=== PATIENT | female | born 1930 | race Caucasian/White ===

== ENCOUNTER 2021-02-20 06:08 | Inpatient (IN) | payer MEDICARE, BC ==
[~2021-02-20] VITALS: Ht 152.4 cm; Wt 88.0 kg
--- NOTE | 2021-02-20 06:21 | NUR ---
MILAGRO FROM HOME FOR C/O SOB X 5 HOURS. SATTING ON 80s ON R/A. 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 ARRIVED ON O2 AT 15LPM VIA NBM SATTING 97%. PT A, OX3. MOSTLY LAO SPEAKING , WAS PLACED IN BED 6 ER, ON MONITOR AND SUPPLEMENTAL O2. WILL CONT TO MONITOR ,
[2021-02-20] MEDS ORDERED: NITROGLYCERIN PACKET 1 GM PACKET ONE (06:51)
[2021-02-20] MEDS ORDERED: NITROGLYCERIN PACKET 1 GM PACKET TD ONE (07:00)
[2021-02-20 07:10] LABS: BASOPHILS % (AUTO) 0.3 % (0.0-2.0); EOSINOPHILS % (AUTO) 0.3 % (0.0-6.0); HEMATOCRIT 36 % (33-45); HEMOGLOBIN 12.2 g/dL (11.5-14.8); LYMPHOCYTES # (AUTO) 0.8 K/uL (0.8-4.8); LYMPHOCYTES % (AUTO) 5.8 % (20.0-44.0); MEAN CORPUSCULAR HGB CONC 34 g/dl (31.0-36.0); MEAN CORPUSCULAR VOLUME 88 fL (82-100); MONOCYTES # (AUTO) 0.8 K/uL (0.1-1.30); MONOCYTES % (AUTO) 6.3 % (2.0-12.0); NEUTROPHILS # (AUTO) 11.5 K/uL (1.8-8.9); NEUTROPHILS % (AUTO) 87.3 % (43.0-81.0); PLATELET COUNT (AUTO) 303 K/uL (150-450); RED BLOOD CELL COUNT(AUTO) 4.12 MIL/uL (4.0-5.2); WHITE BLOOD COUNT (AUTO) 13.2 K/uL (4.3-11.0)
--- NOTE | 2021-02-20 07:13 | NUR ---
URINE COLLECTED AND SENT TO LAB
[2021-02-20 07:37] LABS: CALCIUM, SERUM 8.8 mg/dL (8.5-10.1); CARBON DIOXIDE 23 mmol/L (21-32); CHLORIDE 99 mmol/L (98-107); CREATININE 1.2 mg/dL (0.6-1.3); GLUCOSE 186 mg/dL (74-106); SODIUM SERUM 135 mmol/L (136-145); UREA NITROGEN, BLOOD 29 mg/dL (7-18)
[2021-02-20 07:50] LABS: ALANINE AMINOTRANSFERASE 20 U/L (12-78); ALBUMIN 3.8 g/dL (3.4-5.0); ALKALINE PHOSPHATASE 58 U/L (46-116); ASPARTATE AMINOTRANSFERASE 20 U/L (15-37); BILIRUBIN,DIRECT 0.2 mg/dL (0.0-0.2); BILIRUBIN,TOTAL 0.7 mg/dL (0.2-1.0); TOTAL PROTEIN, SERUM 7.6 g/dL (6.4-8.2)
--- NOTE | 2021-02-20 07:58 | NUR ---
LACTIC ACID 2.1
--- NOTE | 2021-02-20 08:29 | NUR ---
DAUGHTER IN LAW KEELEY WILL ARRIVE TO ER IN 30 MINS. [phone]
--- NOTE | 2021-02-20 08:29 | NUR ---
[facility] PAGED. AWAITING DR PACHECO CALL BACK.
--- NOTE | 2021-02-20 08:37 | NUR ---
COVID POSITIVE PER LAB
[2021-02-20] MEDS ORDERED: DEXAMETHASONE SOD PHOSPHATE 10 MG/ML VIAL IV ONE (09:00)
[2021-02-20] MEDS ORDERED: DEXAMETHASONE SOD PHOSPHATE 10 MG/ML VIAL ONE (09:08)
[2021-02-20 09:17] LABS: BILIRUBIN,URINE NEGATIVE (NEGATIVE); COLOR,URINE YELLOW (YELLOW); LEUKOCYTE ESTERASE ,URINE NEGATIVE (NEGATIVE); NITRITE, URINE NEGATIVE (NEGATIVE); PH,URINE 5.5 (5.0-8.0); PROTEIN,URINE TRACE mg/dl (NEGATIVE); UGLUCOSE NEGATIVE (NEGATIVE); UROBILINOGEN,URINE 0.2 EU/dL (0.2)
--- NOTE | 2021-02-20 09:18 | NUR ---
PT SITTING IN BED COMFORTABLY, AAOX2, BREATHING EVEN AND UNLABORED, WILL CONTINUE TO MONITOR
--- NOTE | 2021-02-20 10:02 | NUR ---
CALLED NURSING SUP FOR TELE BED
--- NOTE | 2021-02-20 10:42 | NUR ---
DAUGHTER IN LAW IN WAITING ROOM
[2021-02-20] MEDS ORDERED: GUAIFENESIN/D-METHORPHAN HB 5 ML UDC PO PRN (11:00)
[2021-02-20] MEDS ORDERED: HYDROCODONE/APAP 5/325MG TABLET PO PRN (11:00)
[2021-02-20] MEDS ORDERED: MAG HYDROX/AL HYDROX/SIMETH 30 ML UDC PO PRN (11:00)
[2021-02-20] MEDS ORDERED: MAGNESIUM HYDROXIDE 30 ML UDC PO PRN (11:00)
[2021-02-20] MEDS ORDERED: Z GUARD REMEDY 4 OZ OINT TP PRN (11:00)
[2021-02-20] MEDS ORDERED: ALBUTEROL SULFATE INH 18 GM HFA.AER.AD IH PRN (11:00)
[2021-02-20] MEDS ORDERED: ONDANSETRON HCL/PF 4 MG/2 ML VIAL IVP PRN (11:00)
--- NOTE | 2021-02-20 11:02 | NUR ---
KIRSTEN FILM COMPOSER. AUTH GIVEN. [id number].
--- NOTE | 2021-02-20 11:26 | NUR ---
SON'S PHONE NUMBER. [phone]
--- NOTE | 2021-02-20 12:03 | NUR ---
PT SITTING IN BED COMFORTABLY. ALERT, SPEAKING, BREATHING EVEN AND UNLABORED. ADDITIONAL BLANKET GIVEN.
[2021-02-20] MEDS ORDERED: METF-440 PO (12:39)
[2021-02-20] MEDS ORDERED: FURO40TA5 PO (12:39)
[2021-02-20] MEDS ORDERED: PREG-59 PO (12:39)
[2021-02-20] MEDS ORDERED: TOLT4CAP14 PO (12:39)
[2021-02-20] MEDS ORDERED: COLC0.6T67 PO (12:39)
[2021-02-20] MEDS ORDERED: EZET10TA15 PO (12:39)
[2021-02-20] MEDS ORDERED: MEMA28CA5 PO (12:39)
[2021-02-20] MEDS ORDERED: LINA5TAB PO (12:39)
[2021-02-20] MEDS ORDERED: AMLO-212 PO (12:39)
[2021-02-20] MEDS ORDERED: SPIR25TA6 PO (12:39)
[2021-02-20] MEDS ORDERED: CLON1PAT12 TP (12:39)
[2021-02-20] MEDS ORDERED: METO50TA16 PO (12:39)
[2021-02-20] MEDS ORDERED: ESCI5TAB PO (12:39)
[2021-02-20] MEDS ORDERED: DEXL60CA3 PO (12:39)
[2021-02-20 12:40] LABS: BACTERIA,URINE Few /HPF (None Seen); RBC,URINE 0-2 /HPF (0-2); SQUAMOUS EPITHELIAL CELL,UR Few /HPF (None Seen); URIC ACID CRYSTALS,URINE Few /HPF (None Seen); WBC,URINE 0-2 /HPF (0-3); YEAST,URINE Rare /HPF (None Seen)
--- NOTE | 2021-02-20 13:15 | NUR ---
KATHRYN TO TELE 102.1
[2021-02-20] MEDS ORDERED: MECL-159 PO (13:22)
--- NOTE | 2021-02-20 13:30 | NUR ---
KEELEY DAUGHTER DROPPED OFF HOME MEDS AND GIVEN TO MISSY RAMIREZ RECON NURSE
--- NOTE | 2021-02-20 13:37 | NUR ---
GOING TO ROOM 101 TELE.
--- NOTE | 2021-02-20 13:41 | NUR ---
REPORT GIVEN TO WILBER SHAIKH. PT AWAITING TRANSFER TO FLOOR.
--- NOTE | 2021-02-20 13:45 | NUR ---
PER SAM US PT GOING TO 103
--- NOTE | 2021-02-20 13:51 | NUR ---
[facility] SWAB COLLECTED VIA NARE AND SENT TO LAB
--- NOTE | 2021-02-20 13:55 | NUR ---
PT TRANSFERRED TO FLOOR BY EMT AND RN FOLLOWING ACLS PROTOCOL
[2021-02-20] MEDS ORDERED: ENOXAPARIN SODIUM 40 MG/0.4 ML DISP.SYRIN SQ SCH (14:00)
--- NOTE | 2021-02-20 14:15 | NUR ---
RN NOTES RECEIVED PATIENT FROM ER DEPT. ADMITTING DX COVID, PATIENT AWAKE, ALERT/ORIENTED X 3-4, ABLE TO MAKE NEEDS KNOWN. SPEAKS COSTA RICAN AND URDU. PATIENT ON O2 4 LPM VIA NC, TOLERATING WELL SATING AT 93%, BP: 146,79, HR-95, RR-20. PATIENT SHOWING SR ON TELE MONITOR. PATIENT DENIES ANY PAIN/DISCOMFORT. PHOTOS TAKEN OF WOUNDS, PRINTED OUT AND PUT IN CHART. ALL BELONGINGS WITH PATIENT AND ACCOUNTED FOR. ALL NEEDS MET. ALL APPLICABLE ISOLATIONS PRECAUTIONS IN PLACE. ALL SAFETY MEASURES IN PLACE. HOB ELEVATED. BED LOCKED AND IN LOWEST POSITION, CALL LIGHT WITHIN REACH OF PATIENT. WILL CONTINUE TO MONITOR PATIENT ACCORDINGLY. Addendum: 02/20/21 at 1437 by WILBER FLORES RN REPORT RECEIVED FROM GRANT SHAIKH.
[2021-02-20 16:00] VITALS: BP 146/79
[2021-02-20] MEDS: ENOXAPARIN SODIUM 30 MG/0.3 ML DISP.SYRIN SQ SCH (16:03)
[2021-02-20] MEDS: LEVOFLOXACIN 750 MG /D5W 150ML 750 MG in PREMIX 1 EA IV SCH (16:05)
--- NOTE | 2021-02-20 19:08 | NUR ---
RN CLOSING NOTES PATIENT REMAINS IN STABLE CONDITION THROUGH SHIFT. NO SIGNIFICANT CHANGES THROUGHOUT SHIFT. NO SOB OR ACUTE DISTRESS NOTED ON O2 4LPM VIA VC, TOLERATING WELL. IV ACCESS ON LEFT AC #18G, PATENT AND INTACT. DENIES ANY PAIN/DISCOMFORT. KEPT PATIENT CLEAN,DRY AND COMFORTABLE. ALL NEEDS ATTENDED. ALL APPLICABLE ISOLATION PRECAUTIONS MAINTAINED. ALL SAFETY MEASURES IN PLACE. HOB ELEVATED, BED LOCKED AND IN LOWE POSITION WITH SIDERAILS UP, CALL LIGHT WITHIN REACH OF PATIENT. WILL ENDORSE TO ONCOMING NURSE FOR CONTINUITY OF CARE.
--- NOTE | 2021-02-20 19:30 | NUR ---
RN NOTE PT RECEIVED IN BED. PT IS ON 4L OF O2 VIA NC SHOWING NO S/S OF RESP DISTRESS. BREATHING EVEN AND UNLABORED. PT IS ALERT AND ORIENTED X3-4, BULGARIAN SPEAKING. ON SENIOR ARCHITECT SHOWING NSR. ON CARDIAC DIET. IV ACCESS NOTED ON LEFT AC #18. LINE FLUSHED, PATENT, AND INTACT WITH NO SIGNS OF INFILTRATION. ALL SAFETY MEASURES IMPLEMENTED. CALL LIGHT WITHIN REACH. BED ALARM ON. BED LOCKED AND IN LOWEST POSITION. SIDE RAILS UP. WILL CONTINUE TO MONITOR AND ASSESS FOR ANY CHANGES DURING SHIFT.
[2021-02-20 20:00] VITALS: BP 129/80
[2021-02-21] VITALS: BP 116/71
[2021-02-21 04:00] VITALS: BP 128/79
--- NOTE | 2021-02-21 06:45 | NUR ---
RN NOTE NO CHANGES IN PT CONDITION DURING SHIFT. PT IS ON 4L OF O2 VIA NC SHOWING NO S/S OF RESP DISTRESS. BREATHING EVEN AND UNLABORED. PT IS ALERT AND ORIENTED X3-4, MACEDONIAN SPEAKING. ON OPEN SHANK COVERER SHOWING NSR. IV ACCESS NOTED ON LEFT AC #18. LINE FLUSHED, PATENT, AND INTACT WITH NO SIGNS OF INFILTRATION. ALL DUE MEDS GIVEN ORDERED. PT KEPT CLEAN AND COMFORTABLE. ALL SAFETY MEASURES IMPLEMENTED. CALL LIGHT WITHIN REACH. BED ALARM ON. BED LOCKED AND IN LOWEST POSITION. SIDE RAILS UP. WILL ENDORSE TO MORNING SHIFT RN FOR STEVEN.
[2021-02-21 07:04] LABS: BASOPHILS % (AUTO) 0.1 % (0.0-2.0); EOSINOPHILS % (AUTO) 0.1 % (0.0-6.0); HEMATOCRIT 33 % (33-45); LYMPHOCYTES % (AUTO) 11.1 % (20.0-44.0); MEAN CORPUSCULAR HGB CONC 34 g/dl (31.0-36.0); MEAN CORPUSCULAR VOLUME 89 fL (82-100); MONOCYTES # (AUTO) 0.9 K/uL (0.1-1.30); MONOCYTES % (AUTO) 10.1 % (2.0-12.0); NEUTROPHILS # (AUTO) 6.7 K/uL (1.8-8.9); NEUTROPHILS % (AUTO) 78.6 % (43.0-81.0); PLATELET COUNT (AUTO) 227 K/uL (150-450); RED BLOOD CELL COUNT(AUTO) 3.66 MIL/uL (4.0-5.2); WHITE BLOOD COUNT (AUTO) 8.6 K/uL (4.3-11.0)
[2021-02-21] MEDS: PANTOPRAZOLE 40 MG TABLET.DR PO SCH (07:41)
--- NOTE | 2021-02-21 07:47 | NUR ---
RN OPENING NOTE- PT IN BED. PT IS ON 4L OF O2 VIA NC SHOWING NO S/S OF RESP DISTRESS. BREATHING EVEN AND NONLABORED. PT IS ALERT AND ORIENTED X3-4, JAPANESE SPEAKING. ON SENIOR SALES ADMINISTRATOR SHOWING NSR. ON CARDIAC DIET. IV ACCESS NOTED ON LEFT AC #18. ASSISTED OOB TO AMBULATE TO BR. VOIDING. STEADY GAIT. ALL SAFETY MEASURES IMPLEMENTED. CALL LIGHT WITHIN REACH. BED ALARM ON. BED LOCKED AND IN LOWEST POSITION. SIDE RAILS UP. WILL CONTINUE TO MONITOR AND ASSESS FOR ANY CHANGES DURING SHIFT.
[2021-02-21 08:00] VITALS: BP 138/61
[2021-02-21] MEDS ORDERED: HYDROGEL DRESSING 90 GM TUBE TP PRN (08:00)
--- NOTE | 2021-02-21 08:02 | NUR ---
WOUND CARE CONSULT: REVIEWED CHART, NURSING DOCUMENTATION AND PHOTO WHICH INDICATES LEFT BUTTOCK STAGE 3 ULCERS, PRESENT ON ADMISSION. RECOMMENDATIONS MADE FOR SKIN PROTECTION AND WOUND CARE. DISCUSSED WITH NURSING STAFF. SURGICAL CONSULT REQUESTED FROM DR JUNIOR BASILIO MD IN AGREEMENT WITH PLAN OF CARE.
[2021-02-21 08:24] LABS: CALCIUM, SERUM 8.8 mg/dL (8.5-10.1); CREATININE 0.9 mg/dL (0.6-1.3); MAGNESIUM 1.9 mg/dL (1.8-2.4); PHOSPHORUS 3.7 mg/dL (2.5-4.9); POTASSIUM 5.5 mmol/L (3.5-5.1)
[2021-02-21] MEDS ORDERED: DEXAMETHASONE SOD PHOSPHATE 6 MG in IV D5W 50 ML IV SCH (09:00)
--- NOTE | 2021-02-21 09:01 | NUR ---
RN NOTE- DYSPEPSIA. MAALOX 30CC ADMINISTERED
[2021-02-21] MEDS: GLUCERNA SHAKE 237 ML CAN PO SCH ×2 (09:09→16:14)
[2021-02-21] MEDS: ENOXAPARIN SODIUM 30 MG/0.3 ML DISP.SYRIN SQ SCH (09:09)
[2021-02-21] MEDS: DEXAMETHASONE SOD PHOSPHATE 10 MG/ML VIAL IV SCH (09:09)
[2021-02-21] MEDS: HYDROGEL DRESSING 90 GM TUBE TP SCH (09:39)
--- NOTE | 2021-02-21 11:09 | NUR ---
RN NOTE- K 5.5 , DR ZHONG NOTIFIED. NNO
[2021-02-21] MEDS: ENOXAPARIN SODIUM 100 MG/ML DISP.SYRIN SQ SCH ×2 (11:20→21:30)
[2021-02-21 12:00] VITALS: BP 142/76
[2021-02-21] MEDS: FUROSEMIDE 40 MG/4 ML VIAL IV SCH ×2 (15:06→21:30)
--- NOTE | 2021-02-21 15:55 | NUR ---
NEEL NOTE- DINA MARRUFO PLACED BY ALFREDO QUICK AT THIS TIME . IVF RESTARTED. Addendum: 02/21/21 at 1605 by LUIS MANUEL MORALES RN WRONG PT NATAN ABOVE
[2021-02-21 16:00] VITALS: BP 133/61
--- NOTE | 2021-02-21 18:33 | NUR ---
RN CLOSING NOTE-PT AWAKE IN BED, ALERT ORIENTED, MAKES NEEDS KNOWN. PT O2 SATS AT 96% ON 4LPM VIA NC, SIDE RAILS UP, BED LOCKED, CALL LIGHT IN REACH. MONITOR/ ASSIST
--- NOTE | 2021-02-21 19:35 | NUR ---
RN NOTE PT RECEIVED IN BED. PT IS ON 4L OF O2 VIA NC SHOWING NO S/S OF RESP DISTRESS. BREATHING EVEN AND UNLABORED. PT IS ALERT AND ORIENTED X4. ON CYTOLOGY MANAGER SHOWING NSR. ON CARDIAC DIET. IV ACCESS NOTED ON LEFT AC #18. LINE FLUSHED, PATENT, AND INTACT WITH NO SIGNS OF INFILTRATION. ALL SAFETY MEASURES IMPLEMENTED. CALL LIGHT WITHIN REACH. BED ALARM ON. BED LOCKED AND IN LOWEST POSITION. SIDE RAILS UP. WILL CONTINUE TO MONITOR AND ASSESS FOR ANY CHANGES DURING SHIFT.
[2021-02-21 20:00] VITALS: BP 122/74
[2021-02-22] VITALS: BP 109/85
[2021-02-22 04:00] VITALS: BP 137/75
--- NOTE | 2021-02-22 06:54 | NUR ---
RN NOTE NO CHANGES IN PT CONDITION DURING SHIFT. PT IS ON 4L OF O2 VIA NC SHOWING NO S/S OF RESP DISTRESS. BREATHING EVEN AND UNLABORED. PT IS ALERT AND ORIENTED X4. ON SPACE SYSTEMS OPERATIONS CRAFTSMAN SHOWING NSR. IV ACCESS NOTED ON LEFT AC #18. LINE FLUSHED, PATENT, AND INTACT WITH NO SIGNS OF INFILTRATION. ALL DUE MEDS GIVEN ORDERED. PT KEPT CLEAN AND COMFORTABLE. ALL SAFETY MEASURES IMPLEMENTED. CALL LIGHT WITHIN REACH. BED ALARM ON. BED LOCKED AND IN LOWEST POSITION. SIDE RAILS UP. WILL ENDORSE TO MORNING SHIFT RN FOR STEVEN.
--- NOTE | 2021-02-22 07:30 | NUR ---
RN MORNING NOTE PT OBSERVED IN BED WITH HOB SEMI FOWLERS. PT IS ON 4L O2 VIA NC SAT 94% TOLERATING WELL WITH NO SIGNS OF DISTRESS OR LABORED BREATHING. PT IS A/OX3-4 AND ON TELE MONITOR SR. PT IS ON BR WITH DIAPER AND ON CARDIAC DIET. PT HAS L AC 18G. BED LOCKED IN LOWEST POSITION X2 BED RAILS UP ALL SAFETY MEASURES ARE IN PLACE AND WILL CONTINUE TO MONITOR THIS SHIFT.
[2021-02-22 07:36] LABS: BASOPHILS % (AUTO) 0.2 % (0.0-2.0); EOSINOPHILS % (AUTO) 0.1 % (0.0-6.0); HEMATOCRIT 35 % (33-45); HEMOGLOBIN 11.7 g/dL (11.5-14.8); LYMPHOCYTES # (AUTO) 1.4 K/uL (0.8-4.8); LYMPHOCYTES % (AUTO) 15.4 % (20.0-44.0); MEAN CORPUSCULAR HGB CONC 33 g/dl (31.0-36.0); MEAN CORPUSCULAR VOLUME 89 fL (82-100); MONOCYTES # (AUTO) 0.8 K/uL (0.1-1.30); MONOCYTES % (AUTO) 8.6 % (2.0-12.0); NEUTROPHILS % (AUTO) 75.7 % (43.0-81.0); PLATELET COUNT (AUTO) 267 K/uL (150-450); RED BLOOD CELL COUNT(AUTO) 3.96 MIL/uL (4.0-5.2); WHITE BLOOD COUNT (AUTO) 9.2 K/uL (4.3-11.0)
[2021-02-22 08:00] VITALS: BP 135/82
[2021-02-22 08:05] LABS: ALBUMIN 3.2 g/dL (3.4-5.0); BILIRUBIN,TOTAL 1.1 mg/dL (0.2-1.0); CALCIUM, SERUM 9.5 mg/dL (8.5-10.1); CREATININE 1.1 mg/dL (0.6-1.3); PHOSPHORUS 3.6 mg/dL (2.5-4.9); POTASSIUM 4.3 mmol/L (3.5-5.1)
[2021-02-22] MEDS: GLUCERNA SHAKE 237 ML CAN PO SCH ×2 (08:35→17:59)
[2021-02-22] MEDS: PANTOPRAZOLE 40 MG TABLET.DR PO SCH (08:38)
[2021-02-22] MEDS: DEXAMETHASONE SOD PHOSPHATE 10 MG/ML VIAL IV SCH (08:39)
[2021-02-22] MEDS: ENOXAPARIN SODIUM 100 MG/ML DISP.SYRIN SQ SCH ×2 (08:41→22:37)
[2021-02-22] MEDS: HYDROGEL DRESSING 90 GM TUBE TP SCH (08:42)
[2021-02-22] MEDS: CARVEDILOL 6.25 MG TABLET PO SCH ×2 (11:08→22:36)
[2021-02-22] MEDS: FUROSEMIDE 40 MG/4 ML VIAL IV SCH ×3 (11:09→18:00)
[2021-02-22 12:00] VITALS: BP_SYST 135; BP_SYST 144; BP_DIAS 68; BP_DIAS 82
--- NOTE | 2021-02-22 12:44 | NUR ---
SW received consult regarding wounds from home. SW attempted to speak with pt., but she did not understand what is being asked. Pt. seemed to not speak Sami very well. SW will make an APS report due to wounds at home.
[2021-02-22] MEDS: LEVOFLOXACIN 750 MG /D5W 150ML 750 MG in PREMIX 1 EA IV SCH (13:34)
[2021-02-22 16:00] VITALS: BP 102/82
--- NOTE | 2021-02-22 19:20 | NUR ---
RN OPENING NOTES RECEIVED PATIENT IN BED, AWAKE, ALERT AND VERBALLY RESPONSIVE, NO SOB NOTED NOT IN DISTRESS, A/O X 3-4, PT ON OXYGEN NASAL CANULA @ 4LPM, . PATIENT NOTED WITH LASHON MIDLINE G#18, PATENT INTACT AND FLUSHED WITH NORMAL SALINE. ALL SAFETY PRECAUTION IMPLEMENTED. BED IS AT LOWEST POSITION AND LOCKED. BED ALARM ARMED. CALL LIGHT IS WITHIN REACH. WILL CONTINUE TO MONITOR
[2021-02-22 20:00] VITALS: BP 142/102
--- NOTE | 2021-02-22 20:14 | NUR ---
RN CLOSING NOTE PT IS IN BED WITH HOB SEMI FOWLERS. PT IS ON 4L O2 VIA NC SAT 95% TOLERATING WELL WITH NO SIGNS OF DISTRESS OR LABORED BREATHING. PT IS A/OX3-4 AND ON TELE MONITOR SR. PT IS ON BR WITH DIAPER AND ON CARDIAC DIET. PT NOW HAS L UA MIDLINE 18G PATENT AND FLUSHING WELL. BED LOCKED IN LOWEST POSITION X2 BED RAILS UP ALL SAFETY MEASURES ARE IN PLACE AND WILL ENDORSE TO EMERGENCY MANAGEMENT CONSULTANT NURSE FOR STEVEN.
[2021-02-23] VITALS: BP 115/82
[2021-02-23 04:00] VITALS: BP 121/68
--- NOTE | 2021-02-23 05:30 | NUR ---
RN NOTES PATIENT REFUSED FOR BLOOD DRAW, WILL TRY AGAIN LATER. ENDORSED TO NEXT SHIFT.
--- NOTE | 2021-02-23 06:43 | NUR ---
RN CLOSING NOTES PATIENT REMAIN STABLE THROUGH OUT THE SHIFT, NO SOB NOTED NOT IN DISTRESS, A/O X 3-4, PT ON OXYGEN NASAL CANULA @ 4LPM, . PATIENT NOTED WITH LASHON MIDLINE G#18, PATENT INTACT AND FLUSHED WITH NORMAL SALINE. ALL DUE MEDS GIVEN ORDERED. ALL SAFETY PRECAUTION IMPLEMENTED. BED IS AT LOWEST POSITION AND LOCKED. BED ALARM ARMED. CALL LIGHT IS WITHIN REACH. WILL CONTINUE TO MONITOR
--- NOTE | 2021-02-23 07:40 | NUR ---
RN OPENING NOTES RECEIVED PATIENT IN BED, AWAKE, ALERT/ORIENTED X 3-4. BREATHING EVEN AND UNLABORED. NO SOB OR ANY ACUTE DISTRESS NOTED, PT ON OXYGEN VIA NC @ 4LPM, TOLERATING WELL. PATIENT NOTED WITH LASHON MIDLINE G#18, PATENT INTACT AND FLUSHED. ALL APPLICABLE ISOLATIONS PRECAUTIONS IN PLACED. ALL SAFETY PRECAUTION IMPLEMENTED. BED IS AT LOWEST POSITION AND LOCKED. BED ALARM ARMED. CALL LIGHT IS WITHIN REACH OF PATIENT. WILL CONTINUE TO MONITOR PATIENT ACCORDINGLY.
[2021-02-23 08:00] VITALS: BP 133/82
[2021-02-23] MEDS: CARVEDILOL 6.25 MG TABLET PO SCH ×2 (08:05→21:00)
[2021-02-23] MEDS: PANTOPRAZOLE 40 MG TABLET.DR PO SCH (08:06)
[2021-02-23] MEDS: DEXAMETHASONE SOD PHOSPHATE 10 MG/ML VIAL IV SCH (08:06)
[2021-02-23] MEDS: ENOXAPARIN SODIUM 100 MG/ML DISP.SYRIN SQ SCH ×2 (08:07→21:17)
[2021-02-23 09:10] LABS: BASOPHILS % (AUTO) 0.3 % (0.0-2.0); EOSINOPHILS % (AUTO) 0.1 % (0.0-6.0); HEMATOCRIT 37 % (33-45); HEMOGLOBIN 12.4 g/dL (11.5-14.8); LYMPHOCYTES # (AUTO) 1.6 K/uL (0.8-4.8); LYMPHOCYTES % (AUTO) 15.3 % (20.0-44.0); MEAN CORPUSCULAR HGB CONC 34 g/dl (31.0-36.0); MEAN CORPUSCULAR VOLUME 88 fL (82-100); MONOCYTES # (AUTO) 0.6 K/uL (0.1-1.30); MONOCYTES % (AUTO) 5.7 % (2.0-12.0); NEUTROPHILS # (AUTO) 8.3 K/uL (1.8-8.9); NEUTROPHILS % (AUTO) 78.6 % (43.0-81.0); PLATELET COUNT (AUTO) 306 K/uL (150-450); RED BLOOD CELL COUNT(AUTO) 4.15 MIL/uL (4.0-5.2); WHITE BLOOD COUNT (AUTO) 10.5 K/uL (4.3-11.0)
[2021-02-23 09:39] LABS: ALANINE AMINOTRANSFERASE 19 U/L (12-78); ALBUMIN 3.3 g/dL (3.4-5.0); ALKALINE PHOSPHATASE 43 U/L (46-116); ASPARTATE AMINOTRANSFERASE 24 U/L (15-37); CARBON DIOXIDE 25 mmol/L (21-32); CHLORIDE 98 mmol/L (98-107); CREATININE 1.4 mg/dL (0.6-1.3); GLUCOSE 168 mg/dL (74-106); MAGNESIUM 1.8 mg/dL (1.8-2.4); PHOSPHORUS 4.1 mg/dL (2.5-4.9); SODIUM SERUM 137 mmol/L (136-145); TOTAL PROTEIN, SERUM 7.2 g/dL (6.4-8.2); UREA NITROGEN, BLOOD 40 mg/dL (7-18)
[2021-02-23] MEDS: HYDROGEL DRESSING 90 GM TUBE TP SCH (09:51)
[2021-02-23] MEDS: GLUCERNA SHAKE 237 ML CAN PO SCH ×2 (09:51→17:16)
[2021-02-23] MEDS: FUROSEMIDE 40 MG/4 ML VIAL IV SCH ×3 (10:39→17:45)
[2021-02-23 12:00] VITALS: BP 116/74
[2021-02-23] MEDS: METOPROLOL TARTRATE 50 MG TABLET PO SCH ×3 (12:25→23:54)
[2021-02-23 16:00] VITALS: BP 119/79
--- NOTE | 2021-02-23 19:30 | NUR ---
RN OPENING NOTES RECEIVED PT IN BED, AWAKE. AOx3-4, ABLE TO MAKE NEEDS KNOWN. ON 4L NC AND TOLERATING WELL/. NO SOB NOTED. NO S/SX OF RESPIRATORY DISTRESS NOTED. TELE MONITOR DETECTS SR IN 70S. IV ACCESS IN LASHON MIDLINE #18. IV IS INTACT, PATENT, AND FLUSHING WELL. SAFETY PRECAUTIONS IN PLACE: BED IN LOWEST, LOCKED POSITION, SIDERAILS UP X2, AND BRAKES ON. TABLE AND CALL LIGHT WITHIN REACH. WILL CONTINUE TO MONITOR.
[2021-02-23 20:00] VITALS: BP 96/62
--- NOTE | 2021-02-23 20:02 | NUR ---
RN CLOSING NOTES PATIENT REMAIN IN STABLE CONDITION THROUGH OUT THE SHIFT, NO SOB NOTED NOT IN DISTRESS, A/O X 3-4, PT ON OXYGEN NASAL CANULA @ 4LPM, . PATIENT NOTED WITH LASHON MIDLINE G#18, PATENT AND INTACT. KEPT PATIENT CLEAN AND DRY. ALL DUE MEDS GIVEN ORDERED. ALL NEEDS ATTENDED AND MET. ALL SAFETY PRECAUTION IMPLEMENTED. BED IS AT LOWEST POSITION AND LOCKED. BED ALARM ARMED. CALL LIGHT IS WITHIN REACH. ENDORSED TO ONCOMING NURSE FOR STEVEN.
[2021-02-24] VITALS: BP 101/74
[2021-02-24 04:00] VITALS: BP 101/74
--- NOTE | 2021-02-24 05:36 | NUR ---
PATIENT REFUSED 4 AM VITALS. WILL CONTINUE TO MONITOR.
[2021-02-24] MEDS: METOPROLOL TARTRATE 50 MG TABLET PO SCH ×3 (06:00→17:10)
--- NOTE | 2021-02-24 06:49 | NUR ---
RN CLOSING NOTES PT IN BED, ASLEEP, OPENS EYES TO VERBAL STIMULI. AOx3-4, ABLE TO MAKE NEEDS KNOWN. ON 4L NC AND TOLERATING WELL. NO SOB NOTED. NO S/SX OF RESPIRATORY DISTRESS NOTED. TELE MONITOR DETECTS SR IN 70S. IV ACCESS IN LASHON MIDLINE #18. IV IS INTACT, PATENT, AND FLUSHING WELL. ALL NEEDS MET. PT KEPT CLEAN AND DRY. SAFETY PRECAUTIONS IN PLACE: BED IN LOWEST, LOCKED POSITION, SIDERAILS UP X2, AND BRAKES ON. TABLE AND CALL LIGHT WITHIN REACH. WILL ENDORSE TO ONCOMING SHIFT FOR STEVEN.
--- NOTE | 2021-02-24 07:25 | NUR ---
RN OPENING NOTE RECEIVE REPORT FROM CHILDREN LIBRARIAN NURSE. PATIENT IN STABLE CONDITION AT TIME OF REPORT. RECEIVE OXYGEN VIA NC AT 4L/MIN. A/O X3-4. TELE MONITOR SHOWS SINUS RHYTHM. WILL FOLLOW UP AM LABS AND DOCTOR ORDERS. PROPER ISOLATION PRECAUTION IN PLACE. ALL SAFETY MEASURE IN PLACE. BED ON LOWEST POSITION WITH HOB ELEVATED AND 3 SIDE RAIL UP. CALL LIGHT WITHIN REACH. WILL CONTINUE TO MONITOR.
[2021-02-24 08:00] VITALS: BP 139/97
[2021-02-24] MEDS: GLUCERNA SHAKE 237 ML CAN PO SCH ×2 (08:02→17:04)
[2021-02-24] MEDS: PANTOPRAZOLE 40 MG TABLET.DR PO SCH (08:09)
[2021-02-24] MEDS: ENOXAPARIN SODIUM 100 MG/ML DISP.SYRIN SQ SCH ×2 (08:09→21:28)
[2021-02-24] MEDS: DEXAMETHASONE SOD PHOSPHATE 10 MG/ML VIAL IV SCH (08:10)
[2021-02-24] MEDS: CARVEDILOL 6.25 MG TABLET PO SCH ×2 (08:16→21:32)
[2021-02-24] MEDS: HYDROGEL DRESSING 90 GM TUBE TP SCH (08:23)
[2021-02-24 12:00] VITALS: BP 132/85
[2021-02-24 13:21] LABS: ALANINE AMINOTRANSFERASE 41 U/L (12-78); ALBUMIN 3.3 g/dL (3.4-5.0); ALKALINE PHOSPHATASE 46 U/L (46-116); ASPARTATE AMINOTRANSFERASE 43 U/L (15-37); BILIRUBIN,TOTAL 0.8 mg/dL (0.2-1.0); CALCIUM, SERUM 8.7 mg/dL (8.5-10.1); CARBON DIOXIDE 25 mmol/L (21-32); CHLORIDE 98 mmol/L (98-107); CREATININE 1.5 mg/dL (0.6-1.3); GLUCOSE 184 mg/dL (74-106); POTASSIUM 3.7 mmol/L (3.5-5.1); SODIUM SERUM 138 mmol/L (136-145); TOTAL PROTEIN, SERUM 7.1 g/dL (6.4-8.2); UREA NITROGEN, BLOOD 53 mg/dL (7-18)
[2021-02-24 13:46] LABS: BASOPHILS % (AUTO) 0.1 % (0.0-2.0); EOSINOPHILS % (AUTO) 0.1 % (0.0-6.0); HEMATOCRIT 37 % (33-45); HEMOGLOBIN 12.4 g/dL (11.5-14.8); LYMPHOCYTES # (AUTO) 0.7 K/uL (0.8-4.8); LYMPHOCYTES % (AUTO) 5.4 % (20.0-44.0); MEAN CORPUSCULAR HGB CONC 33 g/dl (31.0-36.0); MEAN CORPUSCULAR VOLUME 88 fL (82-100); MONOCYTES # (AUTO) 0.9 K/uL (0.1-1.30); MONOCYTES % (AUTO) 6.6 % (2.0-12.0); NEUTROPHILS # (AUTO) 11.3 K/uL (1.8-8.9); NEUTROPHILS % (AUTO) 87.8 % (43.0-81.0); PLATELET COUNT (AUTO) 313 K/uL (150-450); RED BLOOD CELL COUNT(AUTO) 4.24 MIL/uL (4.0-5.2); WHITE BLOOD COUNT (AUTO) 12.9 K/uL (4.3-11.0)
[2021-02-24 16:00] VITALS: BP 132/95
--- NOTE | 2021-02-24 18:29 | NUR ---
RN CLOSING NOTE PATIENT MAINTAIN STABLE CONDITION WITH NO SIGN OF DISTRESS THROUGH OUT SHIFT. REMAIN ON OXYGEN VIA NC AT 4L/MIN. AO X3-4. COMPLIANCE WITH CARE GIVEN. TOOK ALL MEDICATIONS. [place]O TANNER SHOW SINUS RHYTHM/ SINUS TACHYCARDIA. PATIENT AMBULATE TO BED SIDE COMMODE. PROPER ISOLATION PROTOCOL IN PLACE. ALL SAFETY MEASURE IN PLACE. BED ON LOWEST POSITION WITH HOB ELEVATED AND 3 SIDE RIAL UP. CALL LIGHT WITHIN REACH. WILL CONTINUE TO MONITOR AN ENDORSE TO LOSS CLAIM CLERK NURSE.
[2021-02-24 20:00] VITALS: BP 120/79
--- NOTE | 2021-02-24 20:00 | NUR ---
RN OPENING NOTE RECEIVED PATIENT IN BED. A/OX3, LANGUAGE BARRIER. ABLE TO MAKE BASIC NEEDS KNOWN. ON OXYGEN 4L/MIN VIA NASAL CANNULA.RESPIRATIONS ARE EVEN AND UNLABORED. NO S/S SOB NOTED. NO C/O PAIN. NO DISTRESS. TELE MONITOR READS A FLUTTER HR 95. INNO APPARENT DISTRESS. IV ACCESS IN LASHON MIDLINE PATENT AND SALINE LOCKED. BED IS LOW AND LOCKED, HOB ELEVATED IN SEMI FOWLERS, SIDE RIALS UP X3, EDUARDO LIGHT WITHIN REACH. ALARMS ON AND SAFETY MEASURES IN PLACE.
[2021-02-25] VITALS: BP 116/59
[2021-02-25] MEDS: METOPROLOL TARTRATE 50 MG TABLET PO SCH ×4 (01:03→17:07)
[2021-02-25 04:00] VITALS: BP 127/83
--- NOTE | 2021-02-25 06:37 | NUR ---
RN CLOSING NOTE PATIENT IN BED. A/OX3. REMAINS ON OXYGEN 4L/MIN VIA NASAL CANNULA.NO RESP DISTRESS, COUGH. NO PAIN. TELE IS A FLUTTER RANGE 95-105. NO DISTRESS. LASHON MIDLINE MAINTAINED. BED REMAINS LOW AND LOCKED, HOB ELEVATED IN SEMI FOWLERS, SIDE RIALS UP X3, CALL LIGHT WITHIN REACH. ALARMS ON AND SAFETY MEASURES IN PLACE. WILL ENDORSE TO ONCOMING SHIFT.
[2021-02-25 07:10] LABS: BASOPHILS % (AUTO) 0.1 % (0.0-2.0); EOSINOPHILS % (AUTO) 0.1 % (0.0-6.0); HEMATOCRIT 37 % (33-45); HEMOGLOBIN 12.2 g/dL (11.5-14.8); LYMPHOCYTES # (AUTO) 0.9 K/uL (0.8-4.8); LYMPHOCYTES % (AUTO) 9.8 % (20.0-44.0); MEAN CORPUSCULAR HGB CONC 33 g/dl (31.0-36.0); MEAN CORPUSCULAR VOLUME 88 fL (82-100); MONOCYTES # (AUTO) 1.1 K/uL (0.1-1.30); MONOCYTES % (AUTO) 12.4 % (2.0-12.0); NEUTROPHILS # (AUTO) 7.1 K/uL (1.8-8.9); NEUTROPHILS % (AUTO) 77.6 % (43.0-81.0); PLATELET COUNT (AUTO) 292 K/uL (150-450); RED BLOOD CELL COUNT(AUTO) 4.19 MIL/uL (4.0-5.2); WHITE BLOOD COUNT (AUTO) 9.2 K/uL (4.3-11.0)
--- NOTE | 2021-02-25 07:10 | NUR ---
RN OPENING NOTE RECEIVED PATIENT IN BED, A/OX3-4. ABLE TO MAKE NEEDS KNOWN. PATIENT IS ON OXYGEN 4L/MIN VIA NASAL CANNULA WITH EVEN AND UNLABORED BREATHING. NO RESPIRATORY DISTRESS NOTED AT THIS TIME BUT NOTED SOME EFFERT WHEN SPEAKING CONTINUOUSLY. OXYGEN SATURATION WNL. NO C/O PAIN. PATIENT ON TELE MONITOR READS A FLUTTER HR 95. WITH LASHON MIDLINE IV ACCESS, PATENT AND INTACT, ON SALINE LOCK. SAFETY MEASURES ENSURED WITH BED IN LOW AND LOCKED, HOB ELEVATED IN SEMI FOWLERS, SIDE RIALS UP X3, EDUARDO LIGHT WITHIN REACH. ALARMS ON AND SAFETY MEASURES IN PLACE. Addendum: 02/25/21 at 1136 by SHIRLEY SEN RN WILL CONTINUE TO MONITOR PATIENT.
[2021-02-25 07:26] LABS: ALBUMIN 3.2 g/dL (3.4-5.0); BILIRUBIN,TOTAL 0.7 mg/dL (0.2-1.0); CALCIUM, SERUM 8.8 mg/dL (8.5-10.1); CREATININE 1.2 mg/dL (0.6-1.3); MAGNESIUM 2.1 mg/dL (1.8-2.4); PHOSPHORUS 3.8 mg/dL (2.5-4.9); POTASSIUM 4.2 mmol/L (3.5-5.1); TOTAL PROTEIN, SERUM 6.9 g/dL (6.4-8.2)
[2021-02-25 08:00] VITALS: BP 126/79
[2021-02-25] MEDS: PANTOPRAZOLE 40 MG TABLET.DR PO SCH (08:21)
[2021-02-25] MEDS: DEXAMETHASONE SOD PHOSPHATE 10 MG/ML VIAL IV SCH (08:25)
[2021-02-25] MEDS: ENOXAPARIN SODIUM 100 MG/ML DISP.SYRIN SQ SCH ×2 (08:29→20:59)
[2021-02-25] MEDS: CARVEDILOL 6.25 MG TABLET PO SCH ×2 (08:31→20:57)
[2021-02-25] MEDS: HYDROGEL DRESSING 90 GM TUBE TP SCH (08:35)
[2021-02-25] MEDS: GLUCERNA SHAKE 237 ML CAN PO SCH ×2 (08:35→17:00)
[2021-02-25 12:00] VITALS: BP 135/80
[2021-02-25] MEDS ORDERED: REMDESIVIR (CHARGED) 200 MG, *LOADING DOSE 1 EA in IV NS 0.9% 210 ML IV ONE (12:00)
[2021-02-25] MEDS: ACETAMINOPHEN 325 MG TABLET PO PRN ×2 (12:14→20:59)
[2021-02-25 16:00] VITALS: BP 117/68
--- NOTE | 2021-02-25 16:28 | NUR ---
RN NOTE SPOKE WITH SON HIWOT, HE CLAIMS THAT NOBODY CALLED HIM ABOUT ANY PLAN TO TRANSFER PATIENT TO ANOTHER HOSPITAL. HE WISH TO SPEAK WITH MD. DR. PACHECO NOTIFIED ABOUT PATIENT'S SON'S REQUEST. GAVE SON'S NUMBER . WILL CONTINUE TO MONITOR PATIENT.
--- NOTE | 2021-02-25 18:40 | NUR ---
RN CLOSING NOTE PATIENT IN BED, A/OX3-4. ABLE TO MAKE NEEDS KNOWN. PATIENT IS ON OXYGEN 4L/MIN VIA NASAL CANNULA WITH EVEN AND UNLABORED BREATHING. NO RESPIRATORY DISTRESS NOTED AT THIS TIME BUT NOTED SOME EFFORT WHEN SPEAKING CONTINUOUSLY. OXYGEN SATURATION WNL. NO C/O PAIN. PATIENT ON TELE MONITOR READS A FLUTTER BUT MOSTLY AFIB HR 90'S. WITH LASHON MIDLINE IV ACCESS, PATENT AND INTACT, ON SALINE LOCK. ENDORSED THAT PATIENT AND FAMILY STILL WANTS TO TALK TO MD AND DOES NOT WANT TO TRANSFER PATIENT TO ANOTHER HOSPITAL. SAFETY MEASURES ENSURED WITH BED IN LOW AND LOCKED, HOB ELEVATED IN SEMI FOWLERS, SIDE RIALS UP X3, EDUARDO LIGHT WITHIN REACH. ALARMS ON AND SAFETY MEASURES IN PLACE. ENDORSED PATIENT FOR CONTINUITY OF CARE.
--- NOTE | 2021-02-25 19:10 | NUR ---
RN NOTES RECEIVED PATIENT IN BED, A/OX3-4. ABLE TO MAKE NEEDS KNOWN. PATIENT IS ON OXYGEN 3L/MIN VIA NASAL CANNULA WITH EVEN AND UNLABORED BREATHING. NO RESPIRATORY DISTRESS NOTED AT THIS TIME BUT NOTED SOME EFFORT WHEN SPEAKING CONTINUOUSLY. OXYGEN SATURATION WNL. NO C/O PAIN. PATIENT ON TELE MONITOR READS A FLUTTER HR 102. WITH LASHON MIDLINE IV ACCESS , PATENT AND INTACT,FLUSHES WELL ON SALINE LOCK. SAFETY MEASURES ENSURED WITH BED IN LOW AND LOCKED, HOB ELEVATED IN SEMI FOWLERS, SIDE RIALS UP X3, CALL LIGHT WITHIN REACH. ALARMS ON AND SAFETY MEASURES IN PLACE.
[2021-02-25 20:00] VITALS: BP 112/61
[2021-02-26] VITALS: BP 110/71
[2021-02-26] MEDS: METOPROLOL TARTRATE 50 MG TABLET PO SCH ×3 (00:58→11:14)
[2021-02-26 04:00] VITALS: BP 142/89
[2021-02-26 06:35] LABS: BASOPHILS % (AUTO) 0.2 % (0.0-2.0); EOSINOPHILS % (AUTO) 0.1 % (0.0-6.0); HEMATOCRIT 36 % (33-45); LYMPHOCYTES % (AUTO) 10.4 % (20.0-44.0); MEAN CORPUSCULAR HGB CONC 33 g/dl (31.0-36.0); MEAN CORPUSCULAR VOLUME 88 fL (82-100); MONOCYTES # (AUTO) 1.1 K/uL (0.1-1.30); MONOCYTES % (AUTO) 11.7 % (2.0-12.0); NEUTROPHILS # (AUTO) 7.4 K/uL (1.8-8.9); NEUTROPHILS % (AUTO) 77.6 % (43.0-81.0); PLATELET COUNT (AUTO) 285 K/uL (150-450); RED BLOOD CELL COUNT(AUTO) 4.15 MIL/uL (4.0-5.2); WHITE BLOOD COUNT (AUTO) 9.5 K/uL (4.3-11.0)
--- NOTE | 2021-02-26 06:37 | NUR ---
RN NOTES PATIENT IN BED, A/OX3-4. ABLE TO MAKE NEEDS KNOWN. PATIENT IS ON OXYGEN 3L/MIN VIA NASAL CANNULA WITH EVEN AND UNLABORED BREATHING. NO RESPIRATORY DISTRESS NOTED AT THIS TIME BUT NOTED SOME EFFORT WHEN SPEAKING CONTINUOUSLY. OXYGEN SATURATION WNL. NO C/O PAIN. PATIENT ON TELE MONITOR READS A FLUTTER BUT MOSTLY AFIB HR 90'S. WITH LASHON MIDLINE IV ACCESS, PATENT AND INTACT, ON SALINE LOCK. ENDORSED THAT PATIENT AND FAMILY STILL WANTS TO TALK TO MD AND DOES NOT WANT TO TRANSFER PATIENT TO ANOTHER HOSPITAL. SAFETY MEASURES ENSURED WITH BED IN LOW AND LOCKED, HOB ELEVATED IN SEMI FOWLERS, SIDE RIALS UP X3, EDUARDO LIGHT WITHIN REACH. ALARMS ON AND SAFETY MEASURES IN PLACE. ENDORSED PATIENT FOR CONTINUITY OF CARE.
--- NOTE | 2021-02-26 07:21 | NUR ---
RN OPENING NOTES; PT IN BED IN SUPINE POS. A/OX3, TOGOLESE SPEAKING, SOME GAMBIAN. CAN MAKE NEEDS KNOWN. NO SOB OR DISTRESS NOTED. PT ON NC @3L. NO C/O PAIN AT THIS TIME. LASHON ML NOTED, FLUSHED, PATENT WITH NO SIGNS ON INFILTRATION. ALL SAFETY MEASURES RENDERED, BED LOCKED IN LOWEST POS. SIDE RAILS X3 WITH CALL LIGHT WITHIN REACH. WILL CONTINUE TO MONITOR.
[2021-02-26 07:45] LABS: BILIRUBIN,TOTAL 0.6 mg/dL (0.2-1.0); CALCIUM, SERUM 8.9 mg/dL (8.5-10.1); CREATININE 1.3 mg/dL (0.6-1.3); MAGNESIUM 2.1 mg/dL (1.8-2.4); PHOSPHORUS 3.8 mg/dL (2.5-4.9); POTASSIUM 4.5 mmol/L (3.5-5.1); TOTAL PROTEIN, SERUM 6.7 g/dL (6.4-8.2)
[2021-02-26 08:00] VITALS: BP 160/96
[2021-02-26] MEDS ORDERED: REMDESIVIR (CHARGED) 100 MG in IV NS 0.9% 230 ML IV SCH (08:30)
[2021-02-26] MEDS: ENOXAPARIN SODIUM 100 MG/ML DISP.SYRIN SQ SCH (08:32)
[2021-02-26] MEDS: DEXAMETHASONE SOD PHOSPHATE 10 MG/ML VIAL IV SCH (08:32)
[2021-02-26] MEDS: CARVEDILOL 6.25 MG TABLET PO SCH (08:33)
[2021-02-26] MEDS: GLUCERNA SHAKE 237 ML CAN PO SCH (08:33)
[2021-02-26] MEDS: PANTOPRAZOLE 40 MG TABLET.DR PO SCH (08:33)
[2021-02-26] MEDS: HYDROGEL DRESSING 90 GM TUBE TP SCH (08:34)
[2021-02-26] MEDS ORDERED: DILTIAZEM HCL CD 240 MG PO SCH (09:00)
[2021-02-26 12:00] VITALS: BP 107/66
--- NOTE | 2021-02-26 12:31 | NUR ---
RN NOTES; SPOKE WITH SON HIWOT. SON WOULD LIKE TO TAKE MOTHER HOME AMA. AWARE. SON STATED HE WILL FORK LIFT TECHNICIAN PT IN 30 MIN. WILL HAVE PAPERWORK READY FOR SON TO SIGN.
--- NOTE | 2021-02-26 13:17 | NUR ---
RN NOTES; PT LEFT UNIT AMA. EDUCATION DONE REGARDING RISKS. PT SON HAS MADE UP HIS MIND TO TAKE PT. MD AWARE. ALL PAPERWORK SIGNED. BELONGINGS SENT WITH PT. PT ESCORTED TO LOBBY IN STABLE CONDITION. PT LEFT WITH SON VIA PRIVATE VEHICLE.
[2021-02-26] MEDS ORDERED: REMDESIVIR (CHARGED) 100 MG in IV NS 0.9% 100 ML IV SCH (15:00)
[2021-02-27] MEDS ORDERED: REMDESIVIR (CHARGED) 100 MG in IV NS 0.9% 230 ML IV SCH (09:30)
== END 2021-02-26 13:23 | disposition left against medical advice (07) | DRG 177 ==
LOC: EDBD 06:10 → ER 06:10 → TELE-TD 13:22 → TELE1 13:46
PROC: 05HA33Z Insertion of Infusion Device into Left Brachial Vein, Percutaneous Approach (ICD-10-PCS; principal; 2021-02-22)
DX: U07.1 COVID-19 (principal); J96.01 Acute respiratory failure with hypoxia; J12.82 Pneumonia due to coronavirus disease 2019; N17.9 Acute kidney failure, unspecified; E11.9 Type 2 diabetes mellitus without complications; I50.9 Heart failure, unspecified; I11.0 Hypertensive heart disease with heart failure; E66.01 Morbid (severe) obesity due to excess calories; E78.5 Hyperlipidemia, unspecified; Z68.37 Body mass index [BMI] 37.0-37.9, adult; I05.0 Rheumatic mitral stenosis; I48.91 Unspecified atrial fibrillation; I27.20 Pulmonary hypertension, unspecified; S31.829A Unspecified open wound of left buttock, initial encounter; X58.XXXA Exposure to other specified factors, initial encounter
CPT/HCPCS: 36415; 71045-TC; 80048-TC; 80053-TC; 80076-TC; 81001; 82728-TC; 83605-TC; 83735-TC; 83880; 84100-TC; 84484-TC; 85025-TC; 85378-TC; 85730-TC; 86140-TC; 87040-TC; 87081-TC; 87086-TC; 93307-TC; A4216; A6248; C9803; G0378; J1100; J1650; J1940; J1956; J7030; J7050; U0003

== ENCOUNTER 2021-03-03 00:20 | Inpatient (IN) | payer MEDICARE, BC ==
[~2021-03-03] VITALS: Ht 167.6 cm; Wt 84.8 kg
[~2021-03-03 00:20] MED LIST: LINA5TAB PO; MECL-159 PO; METF-440 PO; METO50TA16 PO
--- NOTE | 2021-03-03 00:40 | NUR ---
MILAGRO FROM HOME C/O SOB +WHEEZING WAS RECENTLY ADMITTED FOR COVID O2 SATS @ HOME LOW 90'S. PATIENT ALERT AND ORIENTED X3. AMBULATORY WITH NON LABORED BREATHING.
[2021-03-03] MEDS ORDERED: DILTIAZEM HCL 50 MG IV ONE (01:10)
--- NOTE | 2021-03-03 01:15 | NUR ---
blood collected and sent to lab
[2021-03-03] MEDS ORDERED: ACETAMINOPHEN 325 MG TABLET PO ONE (01:30)
[2021-03-03] MEDS ORDERED: ACETAMINOPHEN ES 500 MG TABLET ONE (01:30)
[2021-03-03] MEDS ORDERED: DILTIAZEM HCL 50 MG IV IV ONE (01:30)
[2021-03-03 01:33] LABS: BASOPHILS # (AUTO) 0.1 K/uL (0.0-0.2); LYMPHOCYTES % (AUTO) 6.1 % (20.0-44.0); MONOCYTES # (AUTO) 1.2 K/uL (0.1-1.30)
--- NOTE | 2021-03-03 01:35 | NUR ---
covid swabs done and sent to lab
[2021-03-03 01:37] LABS: MEAN CORPUSCULAR VOLUME 87 fL (82-100)
[2021-03-03] MEDS ORDERED: CEFTRIAXONE 1GM BAG (ER ONLY) 50 ML IV ONE (01:37)
[2021-03-03] MEDS ORDERED: methylPREDNISolone SOD SUCC 125 MG/2ML VIAL ONE (01:41)
[2021-03-03 01:43] LABS: HEMATOCRIT 35 % (33-45); HEMOGLOBIN 11.4 g/dL (11.5-14.8); MEAN CORPUSCULAR HGB CONC 33 g/dl (31.0-36.0); RED BLOOD CELL COUNT(AUTO) 3.98 MIL/uL (4.0-5.2); WHITE BLOOD COUNT (AUTO) 16.7 K/uL (4.3-11.0)
[2021-03-03 01:44] LABS: BASOPHILS % (AUTO) 0.5 % (0.0-2.0); EOSINOPHILS % (AUTO) 0.4 % (0.0-6.0); MONOCYTES % (AUTO) 7.1 % (2.0-12.0); NEUTROPHILS # (AUTO) 14.3 K/uL (1.8-8.9); NEUTROPHILS % (AUTO) 85.9 % (43.0-81.0); PLATELET COUNT (AUTO) 258 K/uL (150-450)
--- NOTE | 2021-03-03 01:54 | NUR ---
ASSISTANT TECHNICIAN UPDATED WITH CLINICALS
[2021-03-03] MEDS ORDERED: CEFTRIAXONE 1GM BAG (ER ONLY) 1 GM/50 ML PIGGYBACK IV ONE (02:00)
[2021-03-03] MEDS ORDERED: ASPIRIN 325 MG TABLET PO ONE (02:00)
[2021-03-03] MEDS ORDERED: AZITHROMYCIN 500 MG in IV D5W 250 ML IV ONE (02:00)
[2021-03-03] MEDS ORDERED: methylPREDNISolone SOD SUCC 125 MG/2ML VIAL IV ONE (02:00)
--- NOTE | 2021-03-03 02:01 | NUR ---
CALL FROM LAB. RAPID COVID POSITIVE.
[2021-03-03 02:05] LABS: CALCIUM, SERUM 8.3 mg/dL (8.5-10.1); CARBON DIOXIDE 24 mmol/L (21-32); CHLORIDE 95 mmol/L (98-107); CREATININE 1.2 mg/dL (0.6-1.3); GLUCOSE 153 mg/dL (74-106); POTASSIUM 4.1 mmol/L (3.5-5.1); SODIUM SERUM 129 mmol/L (136-145); UREA NITROGEN, BLOOD 30 mg/dL (7-18)
[2021-03-03 02:18] LABS: ALANINE AMINOTRANSFERASE 14 U/L (12-78); ALBUMIN 2.8 g/dL (3.4-5.0); ALKALINE PHOSPHATASE 43 U/L (46-116); BILIRUBIN,DIRECT 0.5 mg/dL (0.0-0.2); BILIRUBIN,TOTAL 1.4 mg/dL (0.2-1.0); TOTAL PROTEIN, SERUM 6.4 g/dL (6.4-8.2)
[2021-03-03 02:29] LABS: ASPARTATE AMINOTRANSFERASE 32 U/L (15-37)
[2021-03-03] MEDS ORDERED: AZITHROMYCIN 500 MG VIAL ONE (02:51)
[2021-03-03] MEDS ORDERED: MAG HYDROX/AL HYDROX/SIMETH 30 ML UDC PO PRN (03:00)
[2021-03-03] MEDS ORDERED: IV NS 0.9% 1,000 ML IV PRN (03:00)
[2021-03-03] MEDS ORDERED: ZOLPIDEM TARTRATE 5 MG TABLET PO PRN (03:00)
[2021-03-03] MEDS ORDERED: HYDROCODONE/APAP 5/325MG TABLET PO PRN (03:00)
[2021-03-03] MEDS ORDERED: ENOXAPARIN SODIUM 40 MG/0.4 ML DISP.SYRIN SQ SCH (03:00)
[2021-03-03] MEDS ORDERED: Z GUARD REMEDY 4 OZ OINT TP PRN (03:00)
[2021-03-03] MEDS ORDERED: MAGNESIUM HYDROXIDE 30 ML UDC PO PRN (03:00)
[2021-03-03] MEDS ORDERED: ONDANSETRON HCL/PF 4 MG/2 ML VIAL IVP PRN (03:00)
[2021-03-03] MEDS ORDERED: ENOXAPARIN SODIUM 40 MG/0.4 ML DISP.SYRIN SQ ONE ×3 (05:27→10:36)
[2021-03-03] MEDS ORDERED: DILTIAZEM HCL 30 MG TABLET PO SCH (06:00)
[2021-03-03] MEDS ORDERED: DILTIAZEM HCL 30 MG TABLET ONE (06:20)
[2021-03-03] MEDS: PANTOPRAZOLE 40 MG TABLET.DR PO SCH (07:41)
[2021-03-03] MEDS ORDERED: PANTOPRAZOLE 40 MG TABLET.DR PO ONE (08:28)
[2021-03-03] MEDS: ASPIRIN EC 81 MG TABLET.DR PO SCH (09:25)
[2021-03-03] MEDS ORDERED: DEXAMETHASONE SOD PHOSPHATE 10 MG/ML VIAL ONE (09:25)
[2021-03-03] MEDS ORDERED: ASPIRIN EC 81 MG TABLET.DR PO ONE (09:25)
[2021-03-03] MEDS: DEXAMETHASONE SOD PHOSPHATE 10 MG/ML VIAL IV SCH (09:30)
--- NOTE | 2021-03-03 09:49 | NUR ---
SEEN BY DR. Samuel BLANCO
--- NOTE | 2021-03-03 09:50 | NUR ---
HOLD FLUIDS FOR NOW PER DR BLANCO
[2021-03-03 10:10] LABS: EOSINOPHILS % (MANUAL) 1 % (0-4); LYMPHOCYTES % (MANUAL) 7 % (16-48); MONOCYTES % (MANUAL) 8 % (0-11.0); NEUTROPHILS % (MANUAL) 84 (42-76)
--- NOTE | 2021-03-03 11:09 | NUR ---
SEEN BY DR FRANCIS
--- NOTE | 2021-03-03 11:22 | NUR ---
ROOM 117-1
--- NOTE | 2021-03-03 11:41 | NUR ---
ATTEMPTED TO GIVE REPORT, WILL LOOK FOR THE NURSE
--- NOTE | 2021-03-03 11:49 | NUR ---
CHANGED ROOM TO 103
--- NOTE | 2021-03-03 11:52 | NUR ---
REPORT GIVEN TO ERAN SHAIKH FOR STEVEN
[2021-03-03] MEDS: METOPROLOL TARTRATE 50 MG TABLET PO SCH ×2 (12:00→17:12)
[2021-03-03 12:41] VITALS: BP 119/75
--- NOTE | 2021-03-03 13:10 | NUR ---
COTTAGE CHEESE MAKER ADMITTING NOTES ADMITTED THIS 89 Y/O FEMALE PATIENT FROM ER @1245 VIA [facility]. WITH ADMITTING DIAGNOSIS OF ACUTE HYPOXIC RESPIRATORY FAILURE AND COVID (+). PATIENT IS AWAKE, A/O X3, VERBALLY RESPONSIVE. ON O2 @2LPM VIA N/C SATTING @97%, NO SOB NOTED. PATIENT PLACED ON EXTERNAL ROCK WOOL INSULATOR WITH CURRENT READING OF AFIB, HR AT 90. DENIES ANY CHEST PAIN. IV ACCESS ON LEFT HAND #20G INTACT AND PATENT, STARTED ON NS @45 ML/HR. SAFETY MEASURES PROVIDED, BED LOCKED AND IN LOWEST POSITION, BED ALARM ON, SR UP X2, CALL LIGHT PLACED WITHIN EASY REACH. WILL CONTINUE TO MONITOR.
[2021-03-03 13:29] LABS: D-DIMER 3.1 mg/L(FEU (0.17-0.50)
[2021-03-03 13:46] LABS: C-REACTIVE PROTEIN 12.4 mg/dL (0.0-0.9)
[2021-03-03] MEDS ORDERED: REMDESIVIR (CHARGED) 200 MG in IV NS 0.9% 250 ML IV ONE (16:00)
--- NOTE | 2021-03-03 18:59 | NUR ---
JAVA INTEGRATION DEVELOPER CLOSING NOTES PATIENT IN BED, AWAKE, NO SIGNS OF ACUTE DISTRESS NOTED. REMAINS ON O2 AT 2LPM VIA N/C SATURATION AT 97%. NO SOB NOTED, BREATHING EVEN AND UNLABORED. IV ACCESS ON LEFT HAND INTACT #20G, NS @45 ML/HR RUNNING. 1ST DOSE OF REMDESIVIR GIVEN, TOLERATED WELL, NO ADVERSE REACTION NOTED. ISOLATION PRECAUTION OBSERVED. SAFETY MEASURES MAINTAINED. WILL ENDORSE TO NEXT SHIFT.
[2021-03-03 20:00] VITALS: BP 125/93
[2021-03-03] MEDS: CEFTRIAXONE 1 G in IV D5W 50 ML IV SCH (21:26)
[2021-03-03] MEDS: ENOXAPARIN SODIUM 80 MG/0.8 ML DISP.SYRIN SQ SCH (21:28)
[2021-03-03] MEDS ORDERED: AZITHROMYCIN 500 MG in IV D5W 250 ML IV SCH (23:00)
[2021-03-04] VITALS: BP 133/91
[2021-03-04] MEDS: METOPROLOL TARTRATE 50 MG TABLET PO SCH ×4 (00:22→18:03)
[2021-03-04] MEDS: ACETAMINOPHEN 325 MG TABLET PO PRN (00:57)
[2021-03-04 05:00] VITALS: BP 104/73
--- NOTE | 2021-03-04 07:05 | NUR ---
RN CLOSING NOTES PAtient has been A&Ox3-4, cooperative. Sats in high 90s on 2L NC. Afib/aflutter 80-100 on monitor. NS infusing at 45cc/hr no signs of infiltration to site. Safety measures in place. Patient compliant with bedrest for now d/t weakness.
[2021-03-04 07:14] LABS: BASOPHILS % (AUTO) 0.1 % (0.0-2.0); HEMATOCRIT 30 % (33-45); HEMOGLOBIN 10.2 g/dL (11.5-14.8); LYMPHOCYTES # (AUTO) 1.3 K/uL (0.8-4.8); LYMPHOCYTES % (AUTO) 6.7 % (20.0-44.0); MEAN CORPUSCULAR HGB CONC 34 g/dl (31.0-36.0); MEAN CORPUSCULAR VOLUME 87 fL (82-100); MONOCYTES # (AUTO) 0.8 K/uL (0.1-1.30); MONOCYTES % (AUTO) 4.5 % (2.0-12.0); NEUTROPHILS # (AUTO) 16.6 K/uL (1.8-8.9); NEUTROPHILS % (AUTO) 88.7 % (43.0-81.0); PLATELET COUNT (AUTO) 265 K/uL (150-450); RED BLOOD CELL COUNT(AUTO) 3.47 MIL/uL (4.0-5.2); WHITE BLOOD COUNT (AUTO) 18.8 K/uL (4.3-11.0)
[2021-03-04 08:00] VITALS: BP 140/89
[2021-03-04 08:39] LABS: ALBUMIN 2.1 g/dL (3.4-5.0); BILIRUBIN,DIRECT 0.2 mg/dL (0.0-0.2); BILIRUBIN,TOTAL 0.5 mg/dL (0.2-1.0); CALCIUM, SERUM 7.9 mg/dL (8.5-10.1); CREATININE 1.1 mg/dL (0.6-1.3); MAGNESIUM 2.1 mg/dL (1.8-2.4); PHOSPHORUS 3.7 mg/dL (2.5-4.9); TOTAL PROTEIN, SERUM 5.6 g/dL (6.4-8.2)
[2021-03-04 09:36] LABS: THYROID STIMULATING HORMONE 1.192 uIU/mL (0.358-3.74)
[2021-03-04] MEDS: ASPIRIN EC 81 MG TABLET.DR PO SCH (09:54)
[2021-03-04] MEDS: DEXAMETHASONE SOD PHOSPHATE 10 MG/ML VIAL IV SCH (09:54)
[2021-03-04] MEDS: PANTOPRAZOLE 40 MG TABLET.DR PO SCH (09:54)
[2021-03-04] MEDS: ENOXAPARIN SODIUM 80 MG/0.8 ML DISP.SYRIN SQ SCH ×2 (09:58→20:44)
[2021-03-04] MEDS ORDERED: FUROSEMIDE 20 MG/2 ML VIAL IV ONE (11:00)
[2021-03-04] MEDS ORDERED: REMDESIVIR (CHARGED) 100 MG in IV NS 0.9% 230 ML IV SCH (11:30)
[2021-03-04 12:00] VITALS: BP 107/81
[2021-03-04] MEDS: ALBUTEROL SULFATE INH 18 GM HFA.AER.AD IH SCH ×3 (12:00→19:47)
[2021-03-04 16:00] VITALS: BP 120/82
[2021-03-04] MEDS: REMDESIVIR (CHARGED) 100 MG in IV NS 0.9% 120 ML IV SCH (16:10)
--- NOTE | 2021-03-04 19:26 | NUR ---
RN NOTES PT RESTING IN BED, ALERT AND RESPONSIVE. NOT IN RESPIRATORY DISTRESS. ON O2 VIA NC @ 2L WITH O2 SAT OF 97. PT IS AFIB CONTROLLED/AFLUTTER. NS AT 45cc/hr HELD BY PMD FOR WHEEZING AND SOB, GIVEN 1 DOSE 20MG LASIX. TOLERATED WELL AND CONDITION IMPROVED.WILL CONTINUE TO MONITOR AND ENDORSE TO NEXT RN L HAND MED LOCK IN PLACE. DUE MEDS GIVEN, NEEDS ATTENDED. ALL SAFETY MEASURES FOLLOWED.
--- NOTE | 2021-03-04 19:30 | NUR ---
AEROSPACE STRESS ENGINEER NOTES RECEIVED RESTING COMFORTABLY ON BED,A/O X4,MAORI SPEAKING,UNDERSTAND TAJIK,BREATHING REGULAR,NOT IN ANY FORM OF DISTRESS,O2 2L/NC IN USED.SALINE LOCK LEFT HAND INTACT AND PATENT,IVF NS 45ML/HR RATE,HOLD AT THE MOMENT DUE TO CHF.DROPLET ISOLATION DUE TO RAPID TEST POSITIVE,PRECAUTION OBSERVED.BED ON LOWEST POSITION AND LOCKED,CALL LIGHT IN REACH,NEEDS ANTICIPATED.
[2021-03-04 20:00] VITALS: BP 107/67
[2021-03-04] MEDS: CEFTRIAXONE 1 G in IV D5W 50 ML IV SCH (21:45)
[2021-03-05] VITALS: BP 113/75
[2021-03-05] MEDS: METOPROLOL TARTRATE 50 MG TABLET PO SCH ×4 (01:01→17:13)
[2021-03-05] MEDS: ALBUTEROL SULFATE INH 18 GM HFA.AER.AD IH SCH ×4 (01:02→19:30)
[2021-03-05 04:00] VITALS: BP 147/66
--- NOTE | 2021-03-05 06:19 | NUR ---
EMBEDDED ENGINEER NOTES FAIRLY RESTED AT NIGHT,NOTED AUDIBLE WHEEZING ON EXERTION,WITH ALBUTEROL INHALATION Q 6 HOURS.NO COMPLAINTS OF PAIN THRU OUT SHIFT,O2 IN USED,CALL LIGHT IN REACH,ALL DUE MEDS ADMINISTERED,NEEDS ATTENDED.
[2021-03-05 07:06] LABS: BASOPHILS % (AUTO) 0.2 % (0.0-2.0); HEMATOCRIT 32 % (33-45); HEMOGLOBIN 10.6 g/dL (11.5-14.8); LYMPHOCYTES # (AUTO) 0.8 K/uL (0.8-4.8); LYMPHOCYTES % (AUTO) 5.8 % (20.0-44.0); MEAN CORPUSCULAR HGB CONC 34 g/dl (31.0-36.0); MEAN CORPUSCULAR VOLUME 87 fL (82-100); MONOCYTES # (AUTO) 0.9 K/uL (0.1-1.30); MONOCYTES % (AUTO) 6.2 % (2.0-12.0); NEUTROPHILS # (AUTO) 12.3 K/uL (1.8-8.9); NEUTROPHILS % (AUTO) 87.8 % (43.0-81.0); PLATELET COUNT (AUTO) 297 K/uL (150-450); RED BLOOD CELL COUNT(AUTO) 3.65 MIL/uL (4.0-5.2); WHITE BLOOD COUNT (AUTO) 14.1 K/uL (4.3-11.0)
[2021-03-05 07:15] LABS: ALBUMIN 2.3 g/dL (3.4-5.0); BILIRUBIN,DIRECT 0.2 mg/dL (0.0-0.2); BILIRUBIN,TOTAL 0.4 mg/dL (0.2-1.0); CALCIUM, SERUM 8.1 mg/dL (8.5-10.1); POTASSIUM 4.5 mmol/L (3.5-5.1); TOTAL PROTEIN, SERUM 5.8 g/dL (6.4-8.2)
--- NOTE | 2021-03-05 07:30 | NUR ---
FACILITATOR NOTES RECEIVED RESTING COMFORTABLY ON BED,A/O X4,ESTONIAN SPEAKING,UNDERSTAND CROATIAN,BREATHING REGULAR,NOT IN ANY FORM OF DISTRESS,O2 2L/NC IN USED.SALINE LOCK LEFT HAND INTACT AND PATENT,IVF NS 45ML/HR RATE. .DROPLET ISOLATION DUE TO RAPID TEST POSITIVE,PRECAUTION OBSERVED.BED ON LOWEST POSITION AND LOCKED,CALL LIGHT IN REACH,NEEDS ANTICIPATED. WILL STEVEN Addendum: 03/05/21 at 1317 by TUSHAR MCKAY RN THERE IS NO IVF NS 45ML/HR RATE RUNNING, HELD PREVIOUS SHIFT, AND DC
[2021-03-05] MEDS: PANTOPRAZOLE 40 MG TABLET.DR PO SCH (07:52)
[2021-03-05 08:00] VITALS: BP 117/69
[2021-03-05] MEDS: ASPIRIN EC 81 MG TABLET.DR PO SCH (09:14)
[2021-03-05] MEDS: DEXAMETHASONE SOD PHOSPHATE 10 MG/ML VIAL IV SCH (09:14)
[2021-03-05] MEDS: ENOXAPARIN SODIUM 80 MG/0.8 ML DISP.SYRIN SQ SCH ×2 (09:15→21:22)
[2021-03-05 12:00] VITALS: BP 132/85
[2021-03-05] MEDS: REMDESIVIR (CHARGED) 100 MG in IV NS 0.9% 120 ML IV SCH (14:50)
[2021-03-05 16:00] VITALS: BP 120/72
--- NOTE | 2021-03-05 18:22 | NUR ---
RN NOTES REMAIN STING COMFORTABLY ON BED,A/O X4,CROATIAN SPEAKING,UNDERSTAND TURKISH,BREATHING REGULAR,NOT IN ANY FORM OF DISTRESS,O2 2L/NC IN USED.SALINE LOCK LEFT HAND INTACT AND PATENt. ALBUTEROL INHALATION Q 6 HOURS.NO COMPLAINTS OF PAIN THRU OUT SHIFT,O2 IN USED,ALL DUE MEDS ADMINISTERED,NEEDS ATTENDED BED ON LOWEST POSITION AND LOCKED,CALL LIGHT IN REACH,NEEDS ANTICIPATED, WILL ENDORSE TO NOC SHIFT.
[2021-03-05] MEDS: CEFTRIAXONE 1 G in IV D5W 50 ML IV SCH (21:20)
[2021-03-05] MEDS ORDERED: GUAIFENESIN/D-METHORPHAN HB 5 ML UDC PO PRN (22:00)
[2021-03-06] VITALS (7 sets, daily range): BP systolic 123–144; BP diastolic 74–97
[2021-03-06] MEDS: ALBUTEROL SULFATE INH 18 GM HFA.AER.AD IH SCH ×2 (01:30→19:30)
[2021-03-06] MEDS: METOPROLOL TARTRATE 50 MG TABLET PO SCH ×4 (06:00→18:18)
[2021-03-06 07:18] LABS: BASOPHILS % (AUTO) 0.1 % (0.0-2.0); EOSINOPHILS % (AUTO) 0.1 % (0.0-6.0); HEMATOCRIT 33 % (33-45); HEMOGLOBIN 11.1 g/dL (11.5-14.8); LYMPHOCYTES % (AUTO) 9.1 % (20.0-44.0); MEAN CORPUSCULAR HGB CONC 34 g/dl (31.0-36.0); MEAN CORPUSCULAR VOLUME 88 fL (82-100); MONOCYTES # (AUTO) 0.9 K/uL (0.1-1.30); MONOCYTES % (AUTO) 8.1 % (2.0-12.0); NEUTROPHILS # (AUTO) 8.9 K/uL (1.8-8.9); NEUTROPHILS % (AUTO) 82.6 % (43.0-81.0); PLATELET COUNT (AUTO) 310 K/uL (150-450); WHITE BLOOD COUNT (AUTO) 10.7 K/uL (4.3-11.0)
[2021-03-06 07:22] LABS: ALBUMIN 2.3 g/dL (3.4-5.0); BILIRUBIN,DIRECT 0.2 mg/dL (0.0-0.2); BILIRUBIN,TOTAL 0.5 mg/dL (0.2-1.0); CALCIUM, SERUM 8.3 mg/dL (8.5-10.1); CREATININE 0.9 mg/dL (0.6-1.3); POTASSIUM 4.8 mmol/L (3.5-5.1); TOTAL PROTEIN, SERUM 5.8 g/dL (6.4-8.2)
--- NOTE | 2021-03-06 07:50 | NUR ---
PHYSICIAN ADVISOR OPENING NOTES RECEIVED PATIENT IN BED, A/O X4, OCCITAN SPEAKING,UNDERSTANDS A LITTLE BIT OF TURKISH, BREATHING SYMMETRICAL, NO SOB, CHEST DISCOMFORT, NOT IN ANY FORM OF DISTRESS, O2 2L/NC IN USED. SALINE LOCK LEFT HAND INTACT AND PATENT, HOLD AT THE MOMENT DUE TO CHF. DROPLET ISOLATION IN PLACE. UNIVERSAL PRECAUTION OBSERVED. BED ON LOWEST POSITION AND LOCKED, CALL LIGHT WITHIN REACH, WILL CONTINUE TO MONITOR.
[2021-03-06] MEDS: DEXAMETHASONE SOD PHOSPHATE 10 MG/ML VIAL IV SCH (08:46)
[2021-03-06] MEDS: ASPIRIN EC 81 MG TABLET.DR PO SCH (08:46)
[2021-03-06] MEDS: PANTOPRAZOLE 40 MG TABLET.DR PO SCH (08:46)
[2021-03-06] MEDS: ENOXAPARIN SODIUM 80 MG/0.8 ML DISP.SYRIN SQ SCH ×2 (08:50→21:32)
[2021-03-06] MEDS: REMDESIVIR (CHARGED) 100 MG in IV NS 0.9% 120 ML IV SCH (14:54)
--- NOTE | 2021-03-06 18:29 | NUR ---
VOCATIONAL TRAINING INSTRUCTOR CLOSING NOTES PATIENT IN BED, AWAKE, NO SIGNS OF ACUTE DISTRESS NOTED. REMAINS ON O2 AT 2LPM VIA N/C SATURATION AT 98%. NO SOB NOTED, BREATHING EVEN AND UNLABORED. IV ACCESS ON LEFT HAND INTACT #20G, SALINE LOCK. DOSE OF REMDESIVIR GIVEN, TOLERATED WELL, NO ADVERSE REACTION NOTED. ALL MEDICATIONS ADMINISTERED ORDERED. ISOLATION PRECAUTION OBSERVED. SAFETY MEASURES MAINTAINED. BED IN LOWEST POSITION AND LOCKED. WILL ENDORSE TO ADMINISTRATION DEAN NURSE.
[2021-03-06] MEDS: CEFTRIAXONE 1 G in IV D5W 50 ML IV SCH (21:34)
[2021-03-06] MEDS: ACETAMINOPHEN 325 MG TABLET PO PRN (21:43)
[2021-03-07] VITALS: BP 131/83
[2021-03-07] MEDS: METOPROLOL TARTRATE 50 MG TABLET PO SCH ×4 (00:56→17:29)
[2021-03-07] MEDS: ALBUTEROL SULFATE INH 18 GM HFA.AER.AD IH SCH ×4 (01:30→20:20)
[2021-03-07 04:00] VITALS: BP 133/88
--- NOTE | 2021-03-07 06:44 | NUR ---
RN NOTES, NO SIGNIFICANT CHANGE IN CONDITION DURING THE NIGHT, HAD HD LAST NIGHT 2L OUT, ASLEEP AT THIS TIME, AT ROOM AIR, NO SOB/ACUTE DISTRESS NOTED, NO BLEEDING NOTED AT HD SITE, PATIENT WITH STABLE VS, STILL AWAITING FOR TRANSFER TO HIGHER LEVEL OF CARE FOR FISTULOGRAM, WILL ENDORSE CONTINUITY OF CARE TO ONCOMING NURSE. Addendum: 03/07/21 at 0646 by CASSIDY YOO RN WRONG ENTRY, DIFFERENT PATIENT
--- NOTE | 2021-03-07 06:47 | NUR ---
RN NOTES, NO SIGNIFICANT CHANGE IN CONDITION DURING THE NIGHT, ASLEEP AT THIS TIME, AROUSES TO TACTILE STIMULI, ON 3LPM VIA NC WITH O2 WNL, , NO SOB/ACUTE DISTRESS NOTED, PATIENT WITH STABLE VS, WILL ENDORSE CONTINUITY OF CARE TO ONCOMING NURSE.
--- NOTE | 2021-03-07 07:30 | NUR ---
RN NOTES RECEIVED PT AWAKE AND RESTING ON BED,A/O X4, UNDERSTAND MACEDONIAN,BREATHING WELL, NO DISTRESS NOTED,O2 3L/NC.SALINE LOCK LEFT HAND INTACT AND PATEN.PRECAUTION OBSERVED.BED ON LOWEST POSITION AND LOCKED,CALL LIGHT IN REACH. WILL STEVEN
[2021-03-07 07:37] LABS: BASOPHILS % (AUTO) 0.1 % (0.0-2.0); EOSINOPHILS % (AUTO) 0.2 % (0.0-6.0); HEMATOCRIT 36 % (33-45); HEMOGLOBIN 11.7 g/dL (11.5-14.8); LYMPHOCYTES # (AUTO) 1.3 K/uL (0.8-4.8); LYMPHOCYTES % (AUTO) 8.7 % (20.0-44.0); MEAN CORPUSCULAR HGB CONC 33 g/dl (31.0-36.0); MEAN CORPUSCULAR VOLUME 87 fL (82-100); MONOCYTES # (AUTO) 0.9 K/uL (0.1-1.30); NEUTROPHILS # (AUTO) 12.6 K/uL (1.8-8.9); PLATELET COUNT (AUTO) 352 K/uL (150-450); RED BLOOD CELL COUNT(AUTO) 4.07 MIL/uL (4.0-5.2); WHITE BLOOD COUNT (AUTO) 14.8 K/uL (4.3-11.0)
[2021-03-07 07:49] LABS: ALBUMIN 2.3 g/dL (3.4-5.0); BILIRUBIN,DIRECT 0.2 mg/dL (0.0-0.2); BILIRUBIN,TOTAL 0.5 mg/dL (0.2-1.0); CALCIUM, SERUM 8.8 mg/dL (8.5-10.1); CREATININE 0.9 mg/dL (0.6-1.3); POTASSIUM 4.7 mmol/L (3.5-5.1); TOTAL PROTEIN, SERUM 5.9 g/dL (6.4-8.2)
[2021-03-07] MEDS: PANTOPRAZOLE 40 MG TABLET.DR PO SCH (07:53)
[2021-03-07 08:00] VITALS: BP 144/87
[2021-03-07] MEDS: DEXAMETHASONE SOD PHOSPHATE 10 MG/ML VIAL IV SCH (08:00)
[2021-03-07] MEDS: ASPIRIN EC 81 MG TABLET.DR PO SCH (08:00)
[2021-03-07] MEDS: ENOXAPARIN SODIUM 80 MG/0.8 ML DISP.SYRIN SQ SCH ×2 (08:01→21:38)
[2021-03-07 12:00] VITALS: BP 108/79
[2021-03-07] MEDS: REMDESIVIR (CHARGED) 100 MG in IV NS 0.9% 120 ML IV SCH (15:08)
[2021-03-07 16:00] VITALS: BP 139/77
[2021-03-07] MEDS: ASCORBIC ACID 500 MG TABLET PO SCH (16:59)
--- NOTE | 2021-03-07 18:21 | NUR ---
RN NOTES PT remain AWAKE AND RESTING ON BED,A/O X4, BREATHING WELL, NO DISTRESS NOTED,O2 3L/NC. TAKE A PHOTO FROM THE WOUND THAT DEVELOPED ON LEFT BUTTOCK AND PUT IN CHART. SALINE LOCK LEFT HAND INTACT AND PATEN. ALL DUE MEDICATION GIVEN, PRECAUTION OBSERVED.BED ON LOWEST POSITION AND LOCKED,CALL LIGHT IN REACH. WILL ENDORSE STEVEN TO NOC SHIFT.
[2021-03-07 20:00] VITALS: BP 141/77
[2021-03-07] MEDS: CEFTRIAXONE 1 G in IV D5W 50 ML IV SCH (21:37)
[2021-03-08] VITALS (8 sets, daily range): BP systolic 133–149; BP diastolic 71–96
[2021-03-08] MEDS: ALBUTEROL SULFATE INH 18 GM HFA.AER.AD IH SCH (01:30)
--- NOTE | 2021-03-08 04:43 | NUR ---
NOTED PATIENT ALERT BUT NOT NOT ORIENTED, NO FOLLOWING COMMANDS, NOTED WITH RIGHT FACIAL DROPPING, RIGHT SIDED WEAKNESS, BS 201, VS 147/92, 80, 88% 02 NON RESPONDING, EYES DO NOT TRACK, PLACED PATIENT IN NRM 15LPM AND WENT TO 100%.
--- NOTE | 2021-03-08 04:43 | NUR ---
[facility] COMPLETED, WITH 28 SCORE, IMFORMED OWEN MARTINEZ MOLDING ROOM SUPERVISOR.
--- NOTE | 2021-03-08 04:45 | NUR ---
CALLED [employer] SECRETARY TO INFORM ABOUT PATIENT CONDITION, PER HIM CALL CODE STROKE.
--- NOTE | 2021-03-08 04:48 | NUR ---
NURSE INVENTORY CONTROLLER ARRIVAL.
--- NOTE | 2021-03-08 04:50 | NUR ---
BLOOD DRAWN AT THIS TIME.
--- NOTE | 2021-03-08 04:55 | NUR ---
TELE-NEUROLOGY ACTIVATED
--- NOTE | 2021-03-08 05:04 | NUR ---
PATIENT NOT FOLLOWING COMMANDS, SWALLOW EVAL NOT DONE.
[2021-03-08 05:05] LABS: BASOPHILS % (AUTO) 0.1 % (0.0-2.0); EOSINOPHILS % (AUTO) 0.1 % (0.0-6.0); HEMATOCRIT 37 % (33-45); HEMOGLOBIN 12.3 g/dL (11.5-14.8); LYMPHOCYTES # (AUTO) 1.2 K/uL (0.8-4.8); LYMPHOCYTES % (AUTO) 5.9 % (20.0-44.0); MEAN CORPUSCULAR HGB CONC 34 g/dl (31.0-36.0); MEAN CORPUSCULAR VOLUME 87 fL (82-100); MONOCYTES % (AUTO) 5.1 % (2.0-12.0); NEUTROPHILS # (AUTO) 18.1 K/uL (1.8-8.9); NEUTROPHILS % (AUTO) 88.8 % (43.0-81.0); PLATELET COUNT (AUTO) 379 K/uL (150-450); RED BLOOD CELL COUNT(AUTO) 4.23 MIL/uL (4.0-5.2); WHITE BLOOD COUNT (AUTO) 20.4 K/uL (4.3-11.0)
--- NOTE | 2021-03-08 05:08 | NUR ---
PATIENT RETURN FROM CT SCAN
[2021-03-08 05:11] LABS: CALCIUM, SERUM 8.5 mg/dL (8.5-10.1); CARBON DIOXIDE 29 mmol/L (21-32); CHLORIDE 101 mmol/L (98-107); GLUCOSE 198 mg/dL (74-106); POTASSIUM 4.8 mmol/L (3.5-5.1); SODIUM SERUM 135 mmol/L (136-145); UREA NITROGEN, BLOOD 32 mg/dL (7-18)
[2021-03-08 05:17] LABS: CHOLESTEROL 63 mg/dL (<200); HDL CHOLESTEROL 21 mg/dL (40-60); LDL 33 mg/dL (0-99); TRIGLYCERIDES 118 mg/dL (30-150)
--- NOTE | 2021-03-08 05:20 | NUR ---
RECEIVED RESULTS FROM RADIOLOGY TO GIVE RESULTS OF CT SCAN, SEE REPORT.
--- NOTE | 2021-03-08 05:40 | NUR ---
AT 0576 REPORT GIVEN VIA TELE MONITOR TO LENIN MARTIN FROM TELE MEDICINE, PER HIM NO TPA CANDIDATE AND DO CT BRAIN AND CT CAROTID, ORDERS NOTED, CONVERSATION ENDED AT 8415
--- NOTE | 2021-03-08 05:40 | NUR ---
EKG DONE AT THIS TIME, AFIB ON THE RESULTS, ON TELE MONITOR AFIB./A-FLUTTER, THAT'S THE BASELINE SINCE ADMISSION.
--- NOTE | 2021-03-08 05:43 | NUR ---
NOTED PATIENT ALERT BUT NOT NOT ORIENTED, NO FOLLOWING COMMANDS, NOTED WITH RIGHT FACIAL DROPPING, RIGHT SIDED WEAKNESS, BS 201, VS 147/92, 80, 88% 02 NON RESPONDING, PLACED PATIENT IN NRM 15LPM AND WENT TO 100%. Addendum: 03/08/21 at 0623 by CASSIDY YOO RN WRONG TIME ENTRY
--- NOTE | 2021-03-08 05:45 | NUR ---
PATIENT TAKEN TO CT ANGIO AT THIS TIME.
--- NOTE | 2021-03-08 05:45 | NUR ---
CALLED SON TO [phone], ON THE EMERGENCY FACESHEET UNDER [facility] [place], BUT BROTHER CASEY WAS THE ONE RESPONDED TO THE CALL, INFORMED HIM THAT MOM HAD STROKE, COMPLETE REPORT GIVEN TO CASEY, AND HE ASKED IF HE CAN VISIT MOM, INFORMED HIM THAT THIS IS A COVID UNIT, AND PT IS POSITIVE COVID, BUT HE CAN SEE HER THROUGH THE WINDOW, HE STATED THAT HE WILL COME LATER TO VISIT PATIENT.
[2021-03-08] MEDS ORDERED: IV NS 0.9% 250 ML IV ONE (05:46)
[2021-03-08] MEDS ORDERED: IOHEXOL-350 100 ML VIAL IV ONE (05:46)
[2021-03-08 06:01] LABS: MAGNESIUM 2.2 mg/dL (1.8-2.4); PHOSPHORUS 3.4 mg/dL (2.5-4.9)
--- NOTE | 2021-03-08 06:08 | NUR ---
RETURN FROM CT BRAIN/CAROTID.
--- NOTE | 2021-03-08 06:20 | NUR ---
DR MONTEZ HERE AT THIS TIME, AND REPORT GIVEN ABOUT THE PATIENT CHANGE IN CONDITION DURING THE NIGHT.
--- NOTE | 2021-03-08 06:34 | NUR ---
RN NOTES, PATIENT FOLLOW COMMANDS UNDERSTAND SHE LEFT LEFT UPPER ARM, BUT UNABLE TO LEFT RIGHT ARM, RIGHT ARM WITH SEVER WEAKNESS, NOTED, RIGHT FACIAL DROOPING, FAIL SWALLOW EVAL, UNABLE TO COMMUNICATE, MAKING INCOMPRESSIBLE SOUNDS, WILL CONTINUE TO MONITOR CLOSELY AND ENDORSE TO ONCOMING NURSE.
--- NOTE | 2021-03-08 07:00 | NUR ---
RN NOTE PATIENT OBSERVED IN BED, AWAKE RESPONSIVE, GARBLED WHEN SPEAKING, ON TELE MONITOR A-FIB NOTED, CURRENTLY ON NPO AT THIS TIME, PENDING SWALLOW AND SPEECH EVAL, IV SITE PATENT FLUSHING WELL, SAFETY MEASURE OBSERVED, BED WHEELS LOCK, CALL LIGHT WITHIN REACH, WILL CONTINUE TO MONITOR..
--- NOTE | 2021-03-08 07:15 | NUR ---
ENDORSED TO MARTHA SHAIKH FOR CONTINUATION OF CARE.
[2021-03-08] MEDS: PANTOPRAZOLE 40 MG TABLET.DR PO SCH (07:30)
[2021-03-08] MEDS: ASCORBIC ACID 500 MG TABLET PO SCH (09:00)
[2021-03-08] MEDS: ZINC SULFATE 220 MG CAPSULE PO SCH (09:00)
[2021-03-08] MEDS: ASPIRIN EC 81 MG TABLET.DR PO SCH (09:00)
[2021-03-08] MEDS: DEXAMETHASONE SOD PHOSPHATE 10 MG/ML VIAL IV SCH (09:43)
[2021-03-08] MEDS: ENOXAPARIN SODIUM 80 MG/0.8 ML DISP.SYRIN SQ SCH ×2 (09:44→22:02)
--- NOTE | 2021-03-08 09:44 | NUR ---
RN NOTE PER ROS VSAQUES OK TO GIVE LOVENOX 80MG/0.8ML.
--- NOTE | 2021-03-08 10:00 | NUR ---
RN NOTE PER KARYNA VASQUES OK TO INSERT NGT, ST RECOMMENDATION.
--- NOTE | 2021-03-08 10:22 | NUR ---
WOUND CARE CONSULT: PT KNOWN TO WOUND CARE AND SURGICAL TEAM FROM PREVIOUS ADMISSION IN WHICH PT WENT HOME AGAINST MEDICAL ADVICE. REVIEWED CHART, NURSING DOCUMENTATION AND PHOTO WHICH INDICATES LEFT BUTTOCK STAGE 3 ULCER PRESENT ON ADMISSION (SEEN BY SURGICAL TEAM ON LAST ADMISSION). RECOMMENDATIONS MADE FOR SKIN PROTECTION AND WOUND CARE. DISCUSSED WITH NURSING STAFF, ORTHOTIC PRACTITIONER AND DR JUNIOR MARTINEZ (SURGICAL WOUND MOLDING FITTER). FIRST STEP LOW AIRLOSS MATTRESS IS ON ORDER. MD IN AGREEMENT WITH PLAN OF CARE.
[2021-03-08] MEDS: HYDROGEL DRESSING 90 GM TUBE TP SCH (10:30)
[2021-03-08] MEDS ORDERED: HYDROGEL DRESSING 90 GM TUBE TP PRN (10:30)
[2021-03-08] MEDS: METOPROLOL TARTRATE 50 MG TABLET PO SCH ×3 (11:38→17:48)
--- NOTE | 2021-03-08 18:23 | NUR ---
RN NOTE PATIENT OBSERVED IN BED, AWAKE RESPONSIVE, GARBLED WHEN SPEAKING, ON TELE MONITOR A-FIB NOTED, CURRENTLY ON NPO AT THIS TIME, PENDING SWALLOW AND SPEECH EVAL, IV SITE PATENT FLUSHING WELL, PATIENT NGT PATENT TOLERATING WELL, FOR DIETARY CONSULT PER ROS VASQUES FOR NGT USE, NIHSS ASSESSMENT DONE, NEEDS MET AND ANTICIPATED, SAFETY MEASURE OBSERVED, BED WHEELS LOCK, CALL LIGHT WITHIN REACH,
--- NOTE | 2021-03-08 18:23 | NUR ---
RN NOTE UPDATED RESPONSIBLE LIBERTARIAN REGARDING PATIENT CURRENT CONDITION
--- NOTE | 2021-03-08 20:00 | NUR ---
RN OPENING NOTES RECEIVED CARE OF PATIENT WHILE IN BED, ASLEEP BUT WAKES UP TO NAME, ON TELE MONITOR A-FIB NOTED, CURRENTLY ON NGT, TOLERATING WELL. ON 6L O2 THERAPY VIA NC, NO SOB NOTED, NO DISTRESS NOTED, 92% O2 SAT AT THIS TIME. IV SITE PATENT FLUSHING WELL, SAFETY MEASURES OBSERVED, BED WHEELS LOCKED, CALL LIGHT WITHIN REACH. APPROPRIATE ISOLATION PRECAUTIONS IMPLEMENTED. WILL CONTINUE TO MONITOR PATIENT.
[2021-03-09] VITALS: BP 139/95
[2021-03-09] MEDS: METOPROLOL TARTRATE 50 MG TABLET PO SCH ×4 (00:45→17:30)
[2021-03-09 04:00] VITALS: BP 143/100
--- NOTE | 2021-03-09 06:26 | NUR ---
RN CLOSING NOTES WILL ENDORSE PATIENT TO AM NURSE WHILE IN BED, ASLEEP BUT WAKES UP TO NAME, ON TELE MONITOR A-FLUTTER NOTED, NO SIGNS OF DISTRESS, CURRENTLY ON NGT, TOLERATING WELL. ALL MEDS GIVEN THROUGH NGT, AUSCULTATED NGT FOR PLACEMENT CONFIRMATION, ON 6L O2 THERAPY VIA NC, NO SOB NOTED, NO DISTRESS NOTED, 95% O2 SAT AT THIS TIME. IV SITE PATENT FLUSHING WELL. NIHSS SCORING SHOWS NO CHANGES FROM PREVIOUS RESULTS, NO NEUROLOGICAL CHANGES NOTED. ALL SAFETY MEASURES OBSERVED, BED WHEELS LOCKED, CALL LIGHT WITHIN REACH. APPROPRIATE ISOLATION PRECAUTIONS IMPLEMENTED. WILL ENDORSE TO AM NURSE FOR STEVEN.
--- NOTE | 2021-03-09 07:28 | NUR ---
RN OPENING NOTES RECEIVED CARE OF PATIENT WHILE IN BED, ASLEEP BUT WAKES UP TO NAME, ON TELE MONITOR A-FIB NOTED, CURRENTLY ON NGT, TOLERATING WELL. ON 6L O2 THERAPY VIA NC, NO SOB NOTED, NO DISTRESS NOTED, 96% O2 SAT AT THIS TIME. IV SITE PATENT FLUSHING WELL, ALL SAFETY MEASURES IN PLACE, BED IN LOWEST LOCKED POSITION, SR UP X 3, CALL LIGHT WITHIN REACH. WILL CONTINUE TO MONITOR THROUGHOUT SHIFT.
[2021-03-09 07:36] LABS: BASOPHILS % (AUTO) 0.1 % (0.0-2.0); EOSINOPHILS % (AUTO) 0.1 % (0.0-6.0); HEMATOCRIT 38 % (33-45); HEMOGLOBIN 12.4 g/dL (11.5-14.8); LYMPHOCYTES % (AUTO) 4.5 % (20.0-44.0); MEAN CORPUSCULAR HGB CONC 33 g/dl (31.0-36.0); MEAN CORPUSCULAR VOLUME 87 fL (82-100); MONOCYTES # (AUTO) 1.7 K/uL (0.1-1.30); MONOCYTES % (AUTO) 7.1 % (2.0-12.0); NEUTROPHILS # (AUTO) 20.7 K/uL (1.8-8.9); NEUTROPHILS % (AUTO) 88.2 % (43.0-81.0); PLATELET COUNT (AUTO) 368 K/uL (150-450); RED BLOOD CELL COUNT(AUTO) 4.29 MIL/uL (4.0-5.2); WHITE BLOOD COUNT (AUTO) 23.5 K/uL (4.3-11.0)
[2021-03-09] MEDS: PANTOPRAZOLE 40 MG TABLET.DR PO SCH (07:42)
[2021-03-09 08:00] VITALS: BP 129/78
[2021-03-09 08:10] LABS: CALCIUM, SERUM 8.3 mg/dL (8.5-10.1); CREATININE 0.9 mg/dL (0.6-1.3); MAGNESIUM 2.1 mg/dL (1.8-2.4); PHOSPHORUS 3.9 mg/dL (2.5-4.9); POTASSIUM 4.7 mmol/L (3.5-5.1)
[2021-03-09] MEDS: DEXAMETHASONE SOD PHOSPHATE 10 MG/ML VIAL IV SCH (09:39)
[2021-03-09] MEDS: ASCORBIC ACID 500 MG TABLET PO SCH (09:39)
[2021-03-09] MEDS: ZINC SULFATE 220 MG CAPSULE PO SCH (09:39)
[2021-03-09] MEDS: ASPIRIN EC 81 MG TABLET.DR PO SCH (09:39)
[2021-03-09] MEDS: ENOXAPARIN SODIUM 80 MG/0.8 ML DISP.SYRIN SQ SCH ×2 (09:42→20:47)
[2021-03-09] MEDS: HYDROGEL DRESSING 90 GM TUBE TP SCH (09:43)
--- NOTE | 2021-03-09 11:13 | NUR ---
SS consult requested for went [facility] last admin, pt. is from home with Left buttock sore. SW will follow up at a later time.
[2021-03-09 12:00] VITALS: BP 138/85
--- NOTE | 2021-03-09 14:25 | NUR ---
RN NOTES CT HEAD DONE. RESULTS REPORTED TO DR. ROS TODD.
[2021-03-09 16:00] VITALS: BP 139/117
--- NOTE | 2021-03-09 18:26 | NUR ---
RN CLOSING NOTES PT RESTING IN BED COMFORTABLY. PT IS A/O X1-2 GUINEAN SPEAKING. PT IS NPO AND HAD NGT. IV ACCESS ON L HAND 20G. NO SIGNS OF SOB OR DISTRESS NOTED. PT TOLERATED ALL TREATMENTS WELL. ALL SAFETY MEASURES IN PLACE, BED IN LOWEST LOCKED POSITION, SIDE RAILS UP X3, CALL LIGHT WITHIN REACH, WILL ENDORSE TO WIRE WINDING MACHINE OPERATOR NURSE FOR STEVEN.
--- NOTE | 2021-03-09 19:35 | NUR ---
RN NOTE PT RESTING IN BED, EASILY AROUSABLE TO STIMULI, A/OX1-2. ON O2 @6LPM VIA NC. IV ACCESS ON L-HAND #20G INTACT/PATENT/FLUSHES WELL. PT NPO WITH NGT IN PLACE AND PATENT. TELE MONITOR READING A-FIB/AFLUTTER CONTROLLED, HR 80s-90s. PT IN NO ACUTE DISTRESS. SAFETY MEASURES IN PLACE, BED IN LOWEST LOCKED POSITION, S/R UPX2, CALL LIGHT WITHIN REACH. WILL CONT TO MONITOR.
[2021-03-09 20:00] VITALS: BP 135/84
[2021-03-10] VITALS: BP 148/90
[2021-03-10] MEDS: METOPROLOL TARTRATE 50 MG TABLET PO SCH ×4 (00:13→18:00)
[2021-03-10] MEDS: ALBUTEROL SULFATE INH 18 GM HFA.AER.AD IH SCH ×5 (02:55→19:30)
[2021-03-10 04:00] VITALS: BP 125/69
[2021-03-10 07:01] LABS: BASOPHILS # (AUTO) 0.1 K/uL (0.0-0.2); BASOPHILS % (AUTO) 0.3 % (0.0-2.0); EOSINOPHILS % (AUTO) 0.1 % (0.0-6.0); HEMATOCRIT 39 % (33-45); HEMOGLOBIN 12.6 g/dL (11.5-14.8); LYMPHOCYTES % (AUTO) 3.8 % (20.0-44.0); MEAN CORPUSCULAR HGB CONC 33 g/dl (31.0-36.0); MEAN CORPUSCULAR VOLUME 88 fL (82-100); MONOCYTES # (AUTO) 1.3 K/uL (0.1-1.30); NEUTROPHILS # (AUTO) 22.9 K/uL (1.8-8.9); NEUTROPHILS % (AUTO) 90.8 % (43.0-81.0); PLATELET COUNT (AUTO) 358 K/uL (150-450); RED BLOOD CELL COUNT(AUTO) 4.39 MIL/uL (4.0-5.2); WHITE BLOOD COUNT (AUTO) 25.2 K/uL (4.3-11.0)
[2021-03-10 07:04] LABS: CALCIUM, SERUM 8.9 mg/dL (8.5-10.1); MAGNESIUM 2.1 mg/dL (1.8-2.4)
--- NOTE | 2021-03-10 07:10 | NUR ---
RN NOTE NO SIGNIFICANT CHANGE OF CONDITION DURING THE SHIFT NOTED. CONT ON O2 @ 5LPM VIA NC, O2 SAT 99-100%. TELE MONITOR READING AFIB/AFLUTTER CONTROLLED, HR 80's-90's. ALL NEEDS ATTENDED TO. SAFETY MEASURES MAINTAINED. ENDORSED TO NEXT SHIFT NURSE.
--- NOTE | 2021-03-10 07:30 | NUR ---
RN OPENING NOTES PT RESTING IN BED COMFORTABLY. PT IS A/O X1-2 CHINESE SPEAKING. PT IS NPO AND HAD NGT. IV ACCESS ON L HAND 20G INTACT AND PATENT. NO SIGNS OF SOB OR DISTRESS NOTED. ALL SAFETY MEASURES IN PLACE, BED IN LOWEST LOCKED POSITION, SIDE RAILS UP X3, CALL LIGHT WITHIN REACH, WILL CONTINUE TO MONITOR.
[2021-03-10] MEDS: PANTOPRAZOLE 40 MG TABLET.DR PO SCH (07:38)
[2021-03-10 08:00] VITALS: BP 146/95
[2021-03-10] MEDS: ZINC SULFATE 220 MG CAPSULE PO SCH (09:42)
[2021-03-10] MEDS: ASPIRIN EC 81 MG TABLET.DR PO SCH (09:42)
[2021-03-10] MEDS: ASCORBIC ACID 500 MG TABLET PO SCH (09:42)
[2021-03-10] MEDS: DEXAMETHASONE SOD PHOSPHATE 10 MG/ML VIAL IV SCH (09:42)
[2021-03-10] MEDS: ENOXAPARIN SODIUM 80 MG/0.8 ML DISP.SYRIN SQ SCH ×2 (09:44→21:23)
[2021-03-10] MEDS: HYDROGEL DRESSING 90 GM TUBE TP SCH (09:49)
[2021-03-10 12:00] VITALS: BP 123/77
--- NOTE | 2021-03-10 12:17 | NUR ---
Follow up: SS consult requested for pt. who has Left Buttock sore present on admission and comes from home. Per EMR from last admission, pt.'s son, Eliot [phone] took pt. home AMA. Per EMR, Son reported pt. has caregiver at home through [facility]. Lily CRISTINA made APS report last admission for this matter on 02/22/2021 APS Intake #[id number]. SW will remain available as needed.
--- NOTE | 2021-03-10 16:00 | NUR ---
RN NOTES [id number] TO GET CONSENT FOR CTA OF BRAIN AND CAROTID. HE SAID I WILL CHECK WITH MY DAUGHTER MARGOTH SINCE SHE IS NEUROLOGIST. I CALLED MARGOTH AT 1600 SHE AGREES FOR THE CTA. I CALLED BACK TO THE SON [facility] AND HE AGREED FOR THE CTA . THE CONSENT SIGNED BY ME AND CHARGE NURSE.
[2021-03-10] MEDS ORDERED: CT SWABBABLE VALVE TRANS SET 1 EA INFUS.SET MC ONE (16:09)
[2021-03-10] MEDS ORDERED: IV NS 0.9% 250 ML IV ONE (16:09)
[2021-03-10] MEDS ORDERED: IOHEXOL-350 100 ML VIAL IV ONE (16:09)
--- NOTE | 2021-03-10 19:30 | NUR ---
RN CLOSING NOTES PT RESTING IN BED COMFORTABLY. PT IS A/O X1-2 COMORAN SPEAKING. PT IS NPO AND HAD NGT. IV ACCESS ON L HAND 20G INTACT AND PATENT. MID LINE ON THE LEFT UPPER ARM INTACT. CTA OF THE BRAIN AND CAROTID DONE. NO SIGNS OF SOB OR DISTRESS NOTED. SWALLOWING EVALUATION DONE , STILL PATIENT NOT ABLE TO SWALLOW PROPERLY. ALL DUE MEDS GIVEN ORDERED. ALL SAFETY MEASURES IN PLACE, BED IN LOWEST LOCKED POSITION, SIDE RAILS UP X3, CALL LIGHT WITHIN REACH, WILL ENDORSE FOR STEVEN.
[2021-03-10] MEDS: WARFARIN SODIUM 5 MG TABLET PO SCH (19:50)
--- NOTE | 2021-03-10 19:53 | NUR ---
RN OPENING NOTES RECEIVED CARE OF PATIENT FROM AM NURSE WHILE PATIENT IN BED, ASLEEP BUT WAKES UP TO NAME, FACIAL, LOSS OF MOTOR AND SENSORY FUNCTION NOTED ON RIGHT SIDE DUE TO STROKE. PATIENT ON TELE MONITOR, AFLUTTER WITH HR 98. PATIENT CURRENTLY ON NGT, TOLERATING WELL. ON 5L O2 THERAPY VIA NC, NO SOB NOTED, NO DISTRESS NOTED, 98% O2 SAT AT THIS TIME. IV SITE PATENT FLUSHING WELL, SAFETY MEASURES OBSERVED, BED WHEELS LOCKED, CALL LIGHT WITHIN REACH. APPROPRIATE ISOLATION PRECAUTIONS IMPLEMENTED. WILL CONTINUE TO MONITOR PATIENT AND PERFORM NIHSS STROKE ASSESSMENTS ACCORDINGLY.
[2021-03-10 20:00] VITALS: BP 124/66
[2021-03-11] VITALS: BP 114/80
[2021-03-11] MEDS: METOPROLOL TARTRATE 50 MG TABLET PO SCH ×4 (00:11→17:54)
[2021-03-11 04:00] VITALS: BP 111/72
--- NOTE | 2021-03-11 07:07 | NUR ---
RN CLOSING NOTES WILL ENDORSE CARE OF PATIENT TO AM NURSE WHILE PATIENT IN BED. ON 5L O2 THERAPY VIA NC, NO SOB NOTED, NO DISTRESS NOTED, 99% O2 SAT AT THIS TIME. PATIENT ON TELE MONITOR, AFLUTTER WITH HR 85, NO SIGNS OF CIRCULATORY COMPROMISE. NO SIGNIFICANT FINDINGS UPON ALL NURSING ASSESSMENTS. NO CHANGES IN NIHSS SCORING FROM PREVIOUS EXAMINATIONS. ALL SAFETY MEASURES OBSERVED, BED WHEELS LOCKED, CALL LIGHT WITHIN REACH. APPROPRIATE ISOLATION PRECAUTIONS IMPLEMENTED. WILL ENDORSE TO AM NURSE FOR STEVEN.
[2021-03-11 07:22] LABS: HEMATOCRIT 37 % (33-45); LYMPHOCYTES % (AUTO) 3.8 % (20.0-44.0); MEAN CORPUSCULAR HGB CONC 33 g/dl (31.0-36.0); MEAN CORPUSCULAR VOLUME 88 fL (82-100); MONOCYTES # (AUTO) 1.4 K/uL (0.1-1.30); MONOCYTES % (AUTO) 5.7 % (2.0-12.0); NEUTROPHILS # (AUTO) 22.5 K/uL (1.8-8.9); NEUTROPHILS % (AUTO) 90.5 % (43.0-81.0); PLATELET COUNT (AUTO) 385 K/uL (150-450); RED BLOOD CELL COUNT(AUTO) 4.19 MIL/uL (4.0-5.2); WHITE BLOOD COUNT (AUTO) 24.9 K/uL (4.3-11.0)
[2021-03-11] MEDS: ALBUTEROL SULFATE INH 18 GM HFA.AER.AD IH SCH ×3 (07:35→13:20)
[2021-03-11 08:00] VITALS: BP 120/92
[2021-03-11 08:26] LABS: CALCIUM, SERUM 8.4 mg/dL (8.5-10.1); CREATININE 1.1 mg/dL (0.6-1.3); MAGNESIUM 2.2 mg/dL (1.8-2.4); PHOSPHORUS 4.1 mg/dL (2.5-4.9); POTASSIUM 4.8 mmol/L (3.5-5.1)
--- NOTE | 2021-03-11 09:00 | NUR ---
ms bunn due meds given via ngt.tolerated well.
[2021-03-11] MEDS: PANTOPRAZOLE 40 MG TABLET.DR PO SCH (09:36)
[2021-03-11] MEDS: ZINC SULFATE 220 MG CAPSULE PO SCH (09:36)
[2021-03-11] MEDS: ASCORBIC ACID 500 MG TABLET PO SCH (09:36)
[2021-03-11] MEDS: DEXAMETHASONE SOD PHOSPHATE 10 MG/ML VIAL IV SCH (09:37)
[2021-03-11] MEDS: ASPIRIN EC 81 MG TABLET.DR PO SCH (09:37)
[2021-03-11] MEDS: ENOXAPARIN SODIUM 80 MG/0.8 ML DISP.SYRIN SQ SCH ×2 (09:46→21:06)
[2021-03-11] MEDS ORDERED: IV NS 0.9% 500 ML IV ONE (10:30)
[2021-03-11 12:00] VITALS: BP 111/72
[2021-03-11] MEDS: HYDROGEL DRESSING 90 GM TUBE TP SCH (13:13)
--- NOTE | 2021-03-11 15:00 | NUR ---
ms rn started feeding tolerated well.
[2021-03-11] MEDS: WARFARIN SODIUM 5 MG TABLET PO SCH (17:59)
[2021-03-11 18:00] VITALS: BP 120/80
[2021-03-11] MEDS: JEVITY 1.2 CAL 1,000 ML BOTTLE GT PRN (18:00)
--- NOTE | 2021-03-11 19:00 | NUR ---
ms rn on bed, no distress noted.
--- NOTE | 2021-03-11 19:49 | NUR ---
RN NOTE RECEIVED PATIENT IN BED, SLEEPING, AROUSABLE TO NAME AND TOUCH. BREATHING EVEN AND UNLABORED. NOTED ON OXYGEN VIA NASAL CANNULA 6L/MIN WITH OXYGEN SATURATION OF 99 PERCENT. NO RESPIRATORY DISTRESS NOTED. NOTED WITH MILD PRODUCTIVE COUGH AT THIS TIME. HOB ELEVATED 35 DEGREES. ON TELE MONITORING, ATRIAL FLUTTER AT 105 BPM. SKIN WARM AND DRY. NOTED WITH LEFT UPPER ARM MIDLINE, LFA 20G, AND LASHON 20G, FLUSHING WELL. NO INFILTRATION. NO IVF RUNNING AT THIS TIME. NOTED WITH NGT ON LEFT NARE, RUNNING JEVITY 1.2 AT 30 ML/HR. MINIMAL RESIDUAL. <5 CC. NO BLEEDING NOTED. BED LOW, IN LOCKED POSITION. CALL LIGHT WITHIN REACH.
[2021-03-11 20:00] VITALS: BP 124/73
[2021-03-12] VITALS: BP 137/66
[2021-03-12] MEDS: METOPROLOL TARTRATE 50 MG TABLET PO SCH ×4 (00:34→18:33)
[2021-03-12 04:00] VITALS: BP 123/74
[2021-03-12] MEDS: ALBUTEROL SULFATE INH 18 GM HFA.AER.AD IH SCH ×3 (07:35→19:30)
--- NOTE | 2021-03-12 07:41 | NUR ---
RN MORNING NOTE PT OBSERVED IN SITTING UP IN BED WITH HOB SEMI FOWLERS. PT IS CURRENTLY RECEIVING 5L O2 VIA NC SAT 98 % TOLERATING WELL WITH NO SIGNS OF DISTRESS OR LABORED BREATHING. PT IS A/OX0, TELE MONITORED WITH A FLUTTER. PT HAS GTUBE INFUSING WITH JEVITY 1.2 30 ML/HR. IV ACCESS L UA MIDLINE, L FA 20G, AND L UA 20G. BED IS LOCKED IN LOWEST POSITION X2 GUARD RAILS UP, CALL LIGHT IS WITHIN REACH, ALL HOSPITAL SAFETY PRECAUTIONS ARE IN PLACE. WILL CONTINUE TO MONITOR THIS SHIFT.
[2021-03-12] MEDS: PANTOPRAZOLE 40 MG TABLET.DR PO SCH (07:56)
[2021-03-12 08:00] VITALS: BP 120/85
--- NOTE | 2021-03-12 08:00 | NUR ---
RN NOTE PT IS A/OX0 AND LETHARGIC. UNABLE TO GIVE INHALER.
[2021-03-12] MEDS: ZINC SULFATE 220 MG CAPSULE PO SCH (08:31)
[2021-03-12] MEDS: ASPIRIN EC 81 MG TABLET.DR PO SCH (08:31)
[2021-03-12] MEDS: DEXAMETHASONE SOD PHOSPHATE 10 MG/ML VIAL IV SCH (08:31)
[2021-03-12] MEDS: ASCORBIC ACID 500 MG TABLET PO SCH (08:31)
[2021-03-12] MEDS: ENOXAPARIN SODIUM 80 MG/0.8 ML DISP.SYRIN SQ SCH (08:33)
[2021-03-12] MEDS: HYDROGEL DRESSING 90 GM TUBE TP SCH (09:59)
[2021-03-12 12:00] VITALS: BP 110/65
--- NOTE | 2021-03-12 13:30 | NUR ---
RN NOTE PT IS A/OX0 AND LETHARGIC. UNABLE TO GIVE INHALER.
[2021-03-12] MEDS ORDERED: WARF5TAB8 PO (14:13)
[2021-03-12] MEDS ORDERED: ASPI-1420 PO (14:13)
[2021-03-12 15:35] LABS: BASOPHILS % (AUTO) 0.1 % (0.0-2.0); HEMATOCRIT 35 % (33-45); HEMOGLOBIN 11.3 g/dL (11.5-14.8); LYMPHOCYTES # (AUTO) 0.7 K/uL (0.8-4.8); LYMPHOCYTES % (AUTO) 2.3 % (20.0-44.0); MEAN CORPUSCULAR HGB CONC 32 g/dl (31.0-36.0); MEAN CORPUSCULAR VOLUME 89 fL (82-100); MONOCYTES # (AUTO) 0.9 K/uL (0.1-1.30); MONOCYTES % (AUTO) 2.9 % (2.0-12.0); NEUTROPHILS # (AUTO) 29.5 K/uL (1.8-8.9); NEUTROPHILS % (AUTO) 94.7 % (43.0-81.0); PLATELET COUNT (AUTO) 372 K/uL (150-450); RED BLOOD CELL COUNT(AUTO) 3.93 MIL/uL (4.0-5.2)
[2021-03-12 15:40] LABS: WHITE BLOOD COUNT (AUTO) 31.1 K/uL (4.3-11.0)
[2021-03-12 15:49] LABS: CALCIUM, SERUM 8.4 mg/dL (8.5-10.1); CARBON DIOXIDE 24 mmol/L (21-32); CHLORIDE 99 mmol/L (98-107); CREATININE 1.7 mg/dL (0.6-1.3); MAGNESIUM 2.6 mg/dL (1.8-2.4); PHOSPHORUS 5.5 mg/dL (2.5-4.9); POTASSIUM 5.7 mmol/L (3.5-5.1); SODIUM SERUM 132 mmol/L (136-145)
[2021-03-12 15:51] LABS: GLUCOSE 455 mg/dL (74-106); UREA NITROGEN, BLOOD 92 mg/dL (7-18)
[2021-03-12 16:00] VITALS: BP 112/65
--- NOTE | 2021-03-12 16:00 | NUR ---
RN NOTE CRITICAL RECEIVED FROM LAB. INR 9.65. PER DR VASQUES, DC LOVENOX AND HOLD COUMADIN.
--- NOTE | 2021-03-12 16:22 | NUR ---
teletypewriter installer note dr vincent Dewey notified that inr 9.65 ok to stop Lovenox and hold Coumadin tonight per his order
[2021-03-12] MEDS: WARFARIN SODIUM 5 MG TABLET PO SCH (16:37)
[2021-03-12 16:42] LABS: BAND % (MANUAL) 2 % (0.0-5.0); LYMPHOCYTES % (MANUAL) 3 % (16-48); MONOCYTES % (MANUAL) 4 % (0-11.0); NEUTROPHILS % (MANUAL) 91 (42-76)
[2021-03-12] MEDS ORDERED: DILTIAZEM HCL IV 125 MG in IV NS 0.9% 100 ML IV PRN ×2 (17:30→18:00)
[2021-03-12] MEDS ORDERED: SODIUM POLYSTYRENE SULFONATE 15 G/60 ML BOTTLE NG ONE (17:30)
[2021-03-12] MEDS ORDERED: DILTIAZEM HCL 25 MG IV IV ONE (18:00)
[2021-03-12] MEDS ORDERED: DEXTROSE 50%-WATER 50 ML DISP.SYRIN IV PRN (19:00)
--- NOTE | 2021-03-12 19:15 | NUR ---
RN NOTE PT RECEIVED IN BED. PT IS ON 3L OF O2 VIA NC SHOWING NO S/S OF RESP DISTRESS. PT IS NOT ALERT OR ORIENTED AND IS NON-VERBAL. PT IS ON POWER REACTOR SUPERVISOR WITH HR FLUCTUATING IN 130S-160S CURRENTLY ON CARDIZEM DRIP RUNNING AT 5 ML/HR. SACRAL WOUND NOTED. JEVITY 1.2 RUNNING AT 30 CC/HR. PT TOLERATING WELL WITH NO RESIDUAL NOTED. IV ACCESS NOTED ON LEFT UPPER ARM ML, LEFT FA #20, AND LEFT UPPER ARM #20. ALL SAFETY MEASURES IMPLEMENTED. WILL CONTINUE TO MONITOR AND ASSESS FOR ANY CHANGES DURING SHIFT.
--- NOTE | 2021-03-12 19:32 | NUR ---
RN NOTE PT CURRENTLY NOT ALERT/ORIENTED. UNABLE TO ADMINISTER SCHEDULED ALBUTEROL. WILL CONTINUE TO MONITOR AND ASSESS FOR ANY CHANGES DURING SHIFT.
[2021-03-12 20:00] VITALS: BP 112/68
--- NOTE | 2021-03-12 20:00 | NUR ---
RN CLOSING NOTE PT OBSERVED IN SITTING UP IN BED WITH HOB SEMI FOWLERS. PT IS CURRENTLY RECEIVING 5L O2 VIA NC SAT 98 % TOLERATING WELL WITH NO SIGNS OF DISTRESS OR LABORED BREATHING. PT IS A/OX0, TELE MONITORED WITH A FLUTTER 134HR AND CURRENTLY ON CARDIZEM DROP 5MG/HR. PT HAS GTUBE INFUSING WITH JEVITY 1.2 30 ML/HR. IV ACCESS L UA MIDLINE, L FA 20G, AND L UA 20G. BED IS LOCKED IN LOWEST POSITION X2 GUARD RAILS UP, CALL LIGHT IS WITHIN REACH, ALL HOSPITAL SAFETY PRECAUTIONS ARE IN PLACE. WILL ENDORSE TO REGIONAL SALES ENGINEER NURSE FOR STEVEN.
[2021-03-13] VITALS: BP 100/63
--- NOTE | 2021-03-13 00:27 | NUR ---
RN NOTE SPOKE WITH ALFREDO WEAVER ABOUT PT BLOOD SUGAR BEING 427. MEAT STOCK CLERK OWEN ORDERED TO GIVE INSULIN PER SLIDING SCALE AND START SCHEDULED INSULIN LANTUS 20 UNITS. ORDER NOTED AND CARRIED OUT.
[2021-03-13] MEDS: BLOOD SUGAR DIAGNOSTIC 1 EACH STRIP IN SCH ×3 (00:32→11:56)
[2021-03-13] MEDS: INSULIN REGULAR, HUMAN 100 UNIT/ML 3 ML VIAL SQ PRN ×3 (00:35→11:56)
[2021-03-13] MEDS ORDERED: INSULIN GLARGINE, 100 UNIT/ML CARTRIDGE SQ ONE (01:00)
[2021-03-13] MEDS: ALBUTEROL SULFATE INH 18 GM HFA.AER.AD IH SCH (01:07)
[2021-03-13 04:00] VITALS: BP 101/52
[2021-03-13] MEDS: METOPROLOL TARTRATE 50 MG TABLET PO SCH ×2 (05:27)
--- NOTE | 2021-03-13 05:43 | NUR ---
RN NOTE SPOKE WITH ALFREDO WEAVER ABOUT PT BLOOD SUGAR INITIALLY BEING 438 AND 433 AFTER SECOND CHECK. SENIOR RELIABILITY ENGINEER OWEN ORDERED TO GIVE INSULIN PER SLIDING SCALE (20 UNITS) WITH NO FURTHER ORDERS. ORDER NOTED AND CARRIED OUT.
--- NOTE | 2021-03-13 06:52 | NUR ---
RN NOTE NO CHANGES IN PT CONDITION DURING SHIFT. PT IS ON 3L OF O2 VIA NC. PT IS NOT ALERT OR ORIENTED. CARDIZEM DRIP RUNNING AT 5 ML/HR. JEVITY 1.2 RUNNING AT 30 CC/HR. PT TOLERATING WELL WITH NO RESIDUAL NOTED. IV ACCESS NOTED ON LEFT UPPER ARM ML, LEFT FA #20, AND LEFT UPPER ARM #20. ALL DUE MEDS GIVEN ORDERED. PT KEPT CLEAN AND COMFORTABLE. ALL SAFETY MEASURES IMPLEMENTED. WILL ENDORSE TO MORNING SHIFT RN FOR STEVEN.
[2021-03-13 07:12] LABS: BASOPHILS # (AUTO) 0.4 K/uL (0.0-0.2); BASOPHILS % (AUTO) 0.9 % (0.0-2.0); EOSINOPHILS % (AUTO) 0.5 % (0.0-6.0); HEMATOCRIT 36 % (33-45); HEMOGLOBIN 11.4 g/dL (11.5-14.8); LYMPHOCYTES # (AUTO) 1.6 K/uL (0.8-4.8); LYMPHOCYTES % (AUTO) 3.7 % (20.0-44.0); MEAN CORPUSCULAR HGB CONC 31 g/dl (31.0-36.0); MEAN CORPUSCULAR VOLUME 93 fL (82-100); MONOCYTES # (AUTO) 2.7 K/uL (0.1-1.30); MONOCYTES % (AUTO) 6.3 % (2.0-12.0); NEUTROPHILS # (AUTO) 37.9 K/uL (1.8-8.9); NEUTROPHILS % (AUTO) 88.6 % (43.0-81.0); PLATELET COUNT (AUTO) 318 K/uL (150-450); RED BLOOD CELL COUNT(AUTO) 3.89 MIL/uL (4.0-5.2)
--- NOTE | 2021-03-13 07:15 | NUR ---
RN OPENING NOTE PATIENT IS ON 3L OF O2 VIA NC. PATIENT NOTED TO BE TACHYPNEIC AT 35 WITH O2 SAT OF 97%. PATIENT A&OX0. CARDIZEM DRIP RUNNING AT 5 ML/HR. ON NGT PATENT UPON ASSESSMENT WITH JEVITY 1.2 RUNNING AT 30 CC/HR. IV ACCESS NOTED ON LEFT UPPER ARM ML, LEFT FA #20, AND LEFT UPPER ARM #20. PATIENT BED IN LOWEST POSITION AND WHEELS LOCKED IN PLACE. CALL LIGHT WITHIN REACH. ALL SAFETY MEASURES NOTED. WILL CONTINUE TO MONITOR. Addendum: 03/13/21 at 0749 by MARTHA GARNER RN RN OPENING NOTE PATIENT IS ON 3L OF O2 VIA NC. PATIENT NOTED TO BE TACHYPNEIC AT 35 WITH O2 SAT OF 97%. ON TELE MONITOR AFLUTTER WITH HR OF 130. PATIENT A&OX0. CARDIZEM DRIP RUNNING AT 5 ML/HR. ON NGT PATENT UPON ASSESSMENT WITH JEVITY 1.2 RUNNING AT 30 CC/HR. IV ACCESS NOTED ON LEFT UPPER ARM ML, LEFT FA #20, AND LEFT UPPER ARM #20. PATIENT BED IN LOWEST POSITION AND WHEELS LOCKED IN PLACE. CALL LIGHT WITHIN REACH. ALL SAFETY MEASURES NOTED. WILL CONTINUE TO MONITOR.
[2021-03-13 07:29] LABS: WHITE BLOOD COUNT (AUTO) 42.7 K/uL (4.3-11.0)
--- NOTE | 2021-03-13 07:50 | NUR ---
RN NOTE NOTIFIED ROS VASQUES REGARDING PATIENT CURRENT CONDITION WBC OF 42.7, BP OF 88/56 ON CARDIZEM DRIP 5ML/HR, RESPIRATION RATE OF 35 O2 SAT OF 97%.
[2021-03-13 08:00] VITALS: BP 92/65
[2021-03-13] MEDS: ZINC SULFATE 220 MG CAPSULE PO SCH (08:27)
[2021-03-13] MEDS: PANTOPRAZOLE 40 MG TABLET.DR PO SCH (08:27)
[2021-03-13] MEDS: ASPIRIN EC 81 MG TABLET.DR PO SCH (08:27)
[2021-03-13] MEDS: ASCORBIC ACID 500 MG TABLET PO SCH (08:27)
[2021-03-13] MEDS: HYDROGEL DRESSING 90 GM TUBE TP SCH (09:11)
[2021-03-13 10:09] LABS: BAND % (MANUAL) 3 % (0.0-5.0); EOSINOPHILS % (MANUAL) 1 % (0-4); LYMPHOCYTES % (MANUAL) 8 % (16-48); MONOCYTES % (MANUAL) 7 % (0-11.0); NEUTROPHILS % (MANUAL) 81 (42-76)
[2021-03-13] MEDS: JEVITY 1.2 CAL 1,000 ML BOTTLE GT PRN (11:49)
[2021-03-13 12:00] VITALS: BP 88/51
[2021-03-13 12:05] LABS: CALCIUM, SERUM 8.5 mg/dL (8.5-10.1); CARBON DIOXIDE 19 mmol/L (21-32); CHLORIDE 102 mmol/L (98-107); CREATININE 2.8 mg/dL (0.6-1.3); MAGNESIUM 3.3 mg/dL (1.8-2.4); PHOSPHORUS 6.5 mg/dL (2.5-4.9); POTASSIUM 5.6 mmol/L (3.5-5.1); SODIUM SERUM 138 mmol/L (136-145)
[2021-03-13 12:18] LABS: GLUCOSE 443 mg/dL (74-106)
[2021-03-13 12:19] LABS: UREA NITROGEN, BLOOD 126 mg/dL (7-18)
[2021-03-13] MEDS ORDERED: VANCOMYCIN HCL 1.25 GM in IV D5W 260 ML IV ONE (12:30)
[2021-03-13] MEDS ORDERED: PHENYLEPHRINE 50 MG in IV NS 0.9% 245 ML IV PRN (12:30)
[2021-03-13] MEDS ORDERED: IV NS 0.9% 250 ML IV ONE (12:30)
[2021-03-13] MEDS ORDERED: IV Sodium Chloride 3% 500 ML 100 ML IV ONE (12:30)
--- NOTE | 2021-03-13 12:30 | NUR ---
RN NOTE DR. HERNANDEZ AND ROS VASQUES AT BED SIDE, PER FAMILY RESPONSIBLE GREEN PARTY PATIENT TO BE PUT IN COMFORT MEASURE.
--- NOTE | 2021-03-13 12:39 | NUR ---
CHARGE NURSE NOTES PER DR. ROS VASQUES AND DR. HERNANDEZ, PATIENT'S FAMILY DOES NOT WANT ANY DRIP NOR TRANSFERRED TO ICU. PATIENT NOW ON COMFORT MEASURES ONLY
[2021-03-13] MEDS ORDERED: MEROPENEM 500 MG in IV NS 0.9% 50 ML IV SCH (13:00)
--- NOTE | 2021-03-13 13:00 | NUR ---
RN NOTE FAMILY MEMBER CASEY (SON) AT BED SIDE.
--- NOTE | 2021-03-13 13:13 | NUR ---
NEEL NOTE NOTIFIED ROS VASQUES. PATIENT UNABLE TO OBTAIN VTS, NO PALPABLE PULSE, DRIVER UTILITY WORKER ASYSTOLE. Addendum: 03/13/21 at 1315 by MARTHA GARNER RN RN NOTE NOTIFIED ROS VASQUES. PATIENT UNABLE TO OBTAIN VTS, NO PALPABLE PULSE, DRIVER UTILITY WORKER ASYSTOLE [phone].
--- NOTE | 2021-03-13 13:14 | NUR ---
RN NOTE PATIENT FAMILY MEMBER NOTIFIED PATIENT .
--- NOTE | 2021-03-13 13:28 | NUR ---
RN NOTE [facility] NOTIFIED, OK TO RELEASE PATIENT, .
[2021-03-13] MEDS ORDERED: INSULIN GLARGINE, 100 UNIT/ML CARTRIDGE SQ SCH (22:00)
[2021-03-14 02:50] LABS: ABG BASE EXCESS -19.6 mmol/L; ABG OXYGEN SATURATION 94.2 % (92.0-98.5); ABG PCO2 23.4 mmHg (35.0-45.0); ABG PH 7.139 (7.350-7.450); ABG PO2 100.7 mmHg (75.0-100.0); AaDO2 157.6 mmHg; COHb 0.3 % (0.5-1.5); MetHb 0.3 % (0.0-1.5); O2Hb 93.6 % (94.0-97.0); SITE, ABG Left Brachial; VENT MODE, BG N/C
[2021-03-15] MEDS ORDERED: VANCOMYCIN 1 GM in IV D5W 250 ML IV SCH ×2
== END 2021-03-13 13:10 | DRG 720 ==
LOC: ER 00:20 → TRANSITION 03:53 → TELE1 11:53 → TELE-TD 03-12 18:31 → ICUOV 03-13 12:27 → TELE1 03-13 12:33 → TELE-TD 03-13 12:35
PROVIDERS: ADMIT Internal Medicine; ATTEND Nurse Practitioner Acute Care
PROC: XW033E5 Introduction of Remdesivir Anti-infective into Peripheral Vein, Percutaneous Approach, New Technology Group 5 (ICD-10-PCS; 2021-03-03)
PROC: 05H633Z Insertion of Infusion Device into Left Subclavian Vein, Percutaneous Approach (ICD-10-PCS; principal; 2021-03-10)
PROC: B547ZZA Ultrasonography of Left Subclavian Vein, Guidance (ICD-10-PCS; 2021-03-10)
DX: A41.89 Other specified sepsis (principal); I63.9 Cerebral infarction, unspecified; J96.21 Acute and chronic respiratory failure with hypoxia; N17.0 Acute kidney failure with tubular necrosis; J12.82 Pneumonia due to coronavirus disease 2019; I50.33 Acute on chronic diastolic (congestive) heart failure; L89.323 Pressure ulcer of left buttock, stage 3; E22.2 Syndrome of inappropriate secretion of antidiuretic hormone; I11.0 Hypertensive heart disease with heart failure; Z51.5 Encounter for palliative care; U07.1 COVID-19; D68.69 Other thrombophilia; G81.91 Hemiplegia, unspecified affecting right dominant side; E11.9 Type 2 diabetes mellitus without complications; I48.91 Unspecified atrial fibrillation; E87.5 Hyperkalemia; Z79.01 Long term (current) use of anticoagulants; Z86.73 Personal history of transient ischemic attack (TIA), and cerebral infarction without residual deficits; I27.20 Pulmonary hypertension, unspecified; I05.0 Rheumatic mitral stenosis; I48.92 Unspecified atrial flutter; E66.9 Obesity, unspecified; Z68.30 Body mass index [BMI] 30.0-30.9, adult; R29.728 NIHSS score 28; Z79.84 Long term (current) use of oral hypoglycemic drugs; R65.21 Severe sepsis with septic shock; R13.10 Dysphagia, unspecified; R18.8 Other ascites; N17.9 Acute kidney failure, unspecified
CPT/HCPCS: 36410; 36415; 36600; 70450-TC; 70496-TC; 70498-TC; 71045-TC; 80048-TC; 80061-TC; 80076-TC; 82728-TC; 82962-TC; 83605-TC; 83735-TC; 83880; 84100-TC; 84443-TC; 84484-TC; 85025-TC; 85378-TC; 85610-TC; 85730-TC; 86140-TC; 87040-TC; 87081-TC; 92526; 92611-TC; A6248; A6253; C9803; G0378; J0456; J0696; J1100; J1650; J1815; J1940; J2185; J2405; J2930; J3490; J7030; J7050; J7060; J7070; Q9967; U0003